=== PATIENT | female | born 1930 | race Caucasian/White ===

== ENCOUNTER 2017-06-20 18:57 | Emergency (ER) | payer OTHER ==
[~2017-06-20] VITALS: Ht 147.3 cm; Wt 51.0 kg
[~2017-06-20 18:57] MED LIST: CLC100 PO; ERGO500037 PO; FENT50DI19 TD; LSN20 PO; NRN400 PO; OXYC1TAB3 PO; SNK PO
[2017-06-20 19:05] VITALS: TEMP 36.6; Ht 147.3 cm; Wt 51.0 kg
[2017-06-20] MEDS ORDERED: DiphenhydrAMINE HCL 50 MG/ML VIAL IV STA (19:18)
[2017-06-20] MEDS ORDERED: SODIUM CHLORIDE 0.9% 1000ML 1,000 ML IV STA (19:18)
[2017-06-20] MEDS ORDERED: ACETAMINOPHEN 500 MG TAB PO STA (19:18)
[2017-06-20] MEDS ORDERED: METOCLOPRAMIDE HCL INJ 5 MG/ML 2 ML VIAL IV STA (19:18)
[2017-06-20] MEDS ORDERED: FENT75DI2 TOP (19:50)
[2017-06-20] MEDS ORDERED: LORA-741 PO (19:52)
[2017-06-20] MEDS ORDERED: PREG1CAP28 PO (19:52)
[2017-06-20 19:59] LABS: INR 1.1 (0.9-1.1); PARTIAL THROMBOPLASTIN RATIO 0.9; PROTHROMBIN TIME (PATIENT) 11.4 SECONDS (9.0-12.0)
[2017-06-20 20:01] LABS: BUN/CREATININE RATIO 17.7 (10-20); CALCIUM 9.3 mg/dl (8.5-10.1); CREATININE 0.84 mg/dl (0.60-1.20); POTASSIUM 3.7 mmol/L (3.5-5.1)
[2017-06-20 20:04] LABS: PHOSPHORUS 2.2 mg/dl (2.5-4.9)
--- NOTE | 2017-06-20 20:18 | DIAGNOSTIC IMAGING REPORT ---
CT OF THE HEAD WITHOUT CONTRAST CLINICAL HISTORY: Severe headache. COMPARISON STUDY: No previous studies for comparison. CT DOSE: 614.27 mGy.cm TECHNIQUE: Helical axial images of the head were obtained without IV contrast. Automated exposure control was utilized for the study. A dose lowering technique was utilized adhering to the principles of ALARA. FINDINGS: No acute intracranial hemorrhage, midline shift or mass effect is present. Brain volume is normal for age. Ventricular system is unremarkable. White matter hypodensity suggests small vessel disease. 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 There are no findings to suggest acute dural sinus thrombosis or acute territorial infarct. Mild white matter hypodensities likely reflect small vessel disease. Visualized portions of the sinuses and mastoid air cells are clear. There are no significant calvarial abnormalities. IMPRESSION: No acute intracranial findings. Electronically signed by: Shamar Putnam M.D. 06/20/2017 8:16 PM Dictated Date/Time: 06/20/2017 8:14 PM
[2017-06-20 20:19] VITALS: O2SAT 97
[2017-06-20] MEDS ORDERED: MAGNESIUM SULFATE 1GM / D5W 1 GM BAG IV STA (21:04)
[2017-06-20] MEDS ORDERED: DEXAMETHASONE SOD INJ 10 MG/ML VIAL IV ONE (21:15)
[2017-06-20 21:34] LABS: URINE APPEARANCE CLOUDY (CLEAR); URINE BILIRUBIN NEG (NEG); URINE COLOR YELLOW; URINE EPITHELIAL CELL AUTO >30 /lpf (0-5); URINE NITRITE NEG (NEG); URINE PH 7.5 (4.5-7.5); URINE SPECIFIC GRAVITY 1.017 (1.000-1.030); UROBILINOGEN NEG (NEG)
[2017-06-20 21:35] LABS: BASO % 0.3 %; BASO ABS # 0.02 K/uL (0-0.2); COMPLETE YES; EOS % 0.2 %; IG% 0.2 %; LYMPH % 23.4 %; MEAN CELL VOLUME 87.5 fL (80-100); MEAN CORPUSCULAR HEMOGLOBIN 29.8 pg (25-34); MEAN PLATELET VOLUME 10.4 fL (7.4-10.4); MONO % 7.7 %; NEUT % 68.2 %; PLATELET COUNT 196 K/uL (130-400)
[2017-06-20 21:45] LABS: MANUAL MICROSCOPIC REQUIRED? NO; REVIEW REQ? NO; SULFASALICYLIC ACID NEG (NEG)
--- NOTE | 2017-06-20 22:15 | EMERGENCY ROOM VISIT NOTE ---
History Report prepared by Carrie: Amarilis Saleh Under the Supervision of: Dr. Krystian Rivero M.D. First contact with patient: 19:08 Chief Complaint: HEADACHE Stated Complaint: SEVERE HEADACHE History of Present Illness The patient is an 87 year old white female with a past medical history of hypertension, multiple myeloma who presents to the ED with a cc of constant headache beginning last night. Positive cheek bone pain, nausea, dry heaving. Negative numbness, tingling, weakness, fever, chills, vomiting, light or sound sensitivity. No recent falls. No history of headaches. No blood thinners. Patient admits to smoking and alcohol use. Source of History: patient Onset: last night Position: head Quality: ache Timing: constant Associated Symptoms: + nausea, No fevers, No chills, No vomiting, No weakness, No numbness Note: Pt reports cheek bone pain, dry heaving. Pt denies tingling, light/sound sensitivity. Review of Systems See HPI for pertinent positives and negatives. A total of ten systems were reviewed and were otherwise negative. Past Medical & Surgical Medical Problems: (1) CKD (chronic kidney disease) stage 3, GFR 30-59 ml/min (2) Compression fracture (3) GERD (gastroesophageal reflux disease) (4) History of DVT (deep vein thrombosis) (5) HTN (hypertension) (6) Multiple myeloma (7) Vitamin D deficiency Surgical Problems: (1) History of appendectomy (2) History of cholecystectomy (3) History of total hysterectomy Social History Problems: (1) Tobacco use Family History Cancer Diabetes mellitus Gallbladder disease Hypertension Social History Smoking Status: Former Smoker Drug Use: none Marital Status: Housing Status: lives alone Occupation Status: retired Current/Historical Medications Scheduled Docusate Sodium (Docusate Sodium), 200 MG PO BID Ergocalciferol (Vitamin D 69479 Unit), 1 CAP PO WK Fentanyl (Fentanyl), 75 MCG TOP [id number] Lisinopril (Lisinopril), 20 MG PO DAILY Pregabalin (Lyrica), 75 MG PO TID Senna (Senna Lax), 2 TABS PO BID Scheduled PRN Lorazepam (Ativan), 0.5 MG PO Q6H PRN for Anxiety Oxycodone Ir (Roxicodone Ir), 5 MG PO Q4H PRN for Pain Allergies Coded Allergies: No Known Allergies (Unverified , 07/28/16) Physical Exam Vital Signs Date Time Temp Pulse Resp B/P (MAP) Pulse Ox O2 Delivery O2 Flow Rate FiO2 06/20/17 21:31 178/96 06/20/17 21:21 72 31 95 06/20/17 20:55 146/87 06/20/17 20:51 73 22 94 06/20/17 20:21 69 23 92 06/20/17 20:20 69 06/20/17 20:19 97 Room Air 06/20/17 20:16 158/83 06/20/17 19:05 36.6 83 20 165/79 93 Room Air Physical Exam GENERAL: Uncomfortable appearing, in pain HENT: Normocephalic, atraumatic. Wearing glasses, edentulous. EYES: Normal conjunctiva. Sclera non-icteric. NECK: Supple. No nuchal rigidity. FROM. No meningismus. Negative Kernig's and Brudzinski's. RESPIRATORY: CTAB, no rhonchi, wheezing, crackles CARDIAC: RRR, no MRG ABDOMEN: Soft, NTND, BS+ MSK: No chest wall TTP, no LE edema NEURO: GCS 15, CN 2-12 intact, visual acuity grossly normal to finger counting, good finger to nose, no sensory deficit, 5/5 strength in upper and lower extremities. SKIN: No rash or jaundice noted. Medical Decision & Procedures ER Provider Diagnostic Interpretation: Radiology results as stated below per my review and radiologist interpretation: CT OF THE HEAD WITHOUT CONTRAST CLINICAL HISTORY: Severe headache. COMPARISON STUDY: No previous studies for comparison. CT DOSE: 614.27 mGy.cm TECHNIQUE: Helical axial images of the head were obtained without IV contrast. Automated exposure control was utilized for the study. A dose lowering technique was utilized adhering to the principles of ALARA. FINDINGS: No acute intracranial hemorrhage, midline shift or mass effect is present. Brain volume is normal for age. Ventricular system is unremarkable. White matter hypodensity suggests small vessel disease. 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 There are no findings to suggest acute dural sinus thrombosis or acute territorial infarct. Mild white matter hypodensities likely reflect small vessel disease. Visualized portions of the sinuses and mastoid air cells are clear. There are no significant calvarial abnormalities. IMPRESSION: No acute intracranial findings. Electronically signed by: Shamar Putnam M.D. 06/20/2017 8:16 PM Dictated Date/Time: 06/20/2017 8:14 PM Laboratory Results 06/20/17 19:40 Red Blood Count 4.00, Mean Corpuscular Volume 87.5, Mean Corpuscular Hemoglobin 29.8, Mean Corpuscular Hemoglobin Concent 34.0, Mean Platelet Volume 10.4, Neutrophils (%) (Auto) 68.2, Lymphocytes (%) (Auto) 23.4, Monocytes (%) (Auto) 7.7, Eosinophils (%) (Auto) 0.2, Basophils (%) (Auto) 0.3, Neutrophils # (Auto) 4.37, Lymphocytes # (Auto) 1.50, Monocytes # (Auto) 0.49, Eosinophils # (Auto) 0.01, Basophils # (Auto) 0.02 06/20/17 19:46 Test 06/20/17 19:40 06/20/17 19:46 06/20/17 21:30 White Blood Count 6.40 K/uL (4.8-10.8) Red Blood Count 4.00 M/uL (4.2-5.4) Hemoglobin 11.9 g/dL (12.0-16.0) Hematocrit 35.0 % (37-47) Mean Corpuscular Volume 87.5 fL (80-100) Mean Corpuscular Hemoglobin 29.8 pg (25-34) Mean Corpuscular Hemoglobin Concent 34.0 g/dl (32-36) Platelet Count 196 K/uL (130-400) Mean Platelet Volume 10.4 fL (7.4-10.4) Neutrophils (%) (Auto) 68.2 % Lymphocytes (%) (Auto) 23.4 % Monocytes (%) (Auto) 7.7 % Eosinophils (%) (Auto) 0.2 % Basophils (%) (Auto) 0.3 % Neutrophils # (Auto) 4.37 K/uL (1.4-6.5) Lymphocytes # (Auto) 1.50 K/uL (1.2-3.4) Monocytes # (Auto) 0.49 K/uL (0.11-0.59) Eosinophils # (Auto) 0.01 K/uL (0-0.5) Basophils # (Auto) 0.02 K/uL (0-0.2) RDW Standard Deviation 44.5 fL (36.4-46.3) RDW Coefficient of Variation 13.9 % (11.5-14.5) Immature Granulocyte % (Auto) 0.2 % Immature Granulocyte # (Auto) 0.01 K/uL (0.00-0.02) Prothrombin Time 11.4 SECONDS (9.0-12.0) Prothromb Time International Ratio 1.1 (0.9-1.1) Activated Partial Thromboplast Time 24.0 SECONDS (21.0-31.0) Partial Thromboplastin Ratio 0.9 Anion Gap 6.0 mmol/L (3-11) Est Creatinine Clear Calc Drug Dose 34.7 ml/min Estimated GFR () 73.5 Estimated GFR (Non- 63.4 BUN/Creatinine Ratio 17.7 (10-20) Calcium Level 9.3 mg/dl (8.5-10.1) Phosphorus Level 2.2 mg/dl (2.5-4.9) Magnesium Level 2.0 mg/dl (1.8-2.4) Alkaline Phosphatase 39 U/L (45-117) Lactate Dehydrogenase 137 U/L (84-246) Total Creatine Kinase 60 U/L (26-192) Urine Color YELLOW Urine Appearance CLOUDY (CLEAR) Urine pH 7.5 (4.5-7.5) Urine Specific [place] 1.017 (1.000-1.030) Urine Protein NEG (NEG) Urine Glucose (UA) NEG (NEG) Urine Ketones TRACE (NEG) Urine Occult Blood NEG (NEG) Urine Nitrite NEG (NEG) Urine Bilirubin NEG (NEG) Urine Urobilinogen NEG (NEG) Urine Leukocyte Esterase NEG (NEG) Urine WBC (Auto) 1-5 /hpf (0-5) Urine RBC (Auto) 0-4 /hpf (0-4) Urine Hyaline Casts (Auto) 0 /lpf (0-5) Urine Epithelial Cells (Auto) >30 /lpf (0-5) Urine Bacteria (Auto) NEG (NEG) Laboratory results reviewed by me Medications Administered Medications (Trade) Dose Ordered Sig/Carlitos Route Start Time Stop Time Status Last Admin Dose Admin Metoclopramide HCl (Reglan Inj) 10 mg NOW STAT IV 06/20/17 19:18 06/20/17 19:22 DC 06/20/17 19:45 10 MG Acetaminophen (Tylenol Tab) 1,000 mg NOW STAT PO 06/20/17 19:18 06/20/17 19:22 DC 06/20/17 19:43 1,000 MG Diphenhydramine HCl (Benadryl Inj) 12.5 mg NOW STAT IV 06/20/17 19:18 06/20/17 19:22 DC 06/20/17 19:42 12.5 MG Sodium Chloride 1,000 ml @ 999 mls/hr Q1H1M STAT IV 06/20/17 19:18 06/20/17 20:18 DC 06/20/17 20:44 999 MLS/HR Dexamethasone Sodium Phosphate (Decadron Inj) 10 mg NOW ONCE IV 06/20/17 21:15 06/20/17 21:16 DC 06/20/17 21:16 10 MG Magnesium Sulfate (Magnesium Sulfate) 1 gm NOW STAT IV 06/20/17 21:04 06/20/17 21:06 DC 06/20/17 21:16 1 GM ECG Indication: nausea Rate (beats per minute): 63 Rhythm: normal sinus Findings: 1st degree AV block, other (prolonged NV, normal QRS and QTc intervals, isolated TWI in lead 3, no contiguous changes, no other STS changes or TWI) ED Course 1908: The patient was evaluated in room B12B. A complete history and physical exam was performed. 2100: I reevaluated the patient. She is not feeling significantly improved. I informed them of the lab and CT results. 2154: I reevaluated the patient. She still has mild pain, but is improved. She tolerated PO. I discussed results and discharge instructions: she verbalized understanding and agreement. The patient is ready for discharge. Medical Decision The patient is an 87 year old white female with a past medical history of hypertension, multiple myeloma who presents to the ED with a cc of constant headache beginning last night. Triage Nursing notes reviewed. The patient's presentation and history were concerning for migraine, dehydration , metabolic abnormality, cancer mass. Patient does have a history of chronic pain issues and takes oxycodone as well as has a prescription for fentanyl patch. Given patient's history of multiple myeloma additional lab work and a CT was obtained. Patient had a negative CT scan patient's lab work was fairly unremarkable. Patient's calcium LDH and alkaline phosphatase were within normal limits. Patient's UA was negative for acute infection. Patient's kidney function was normal. Patient does not have an elevated white count. Patient's CT did not show any acute mass or lytic lesions per the radiologist's read. Patient was given an additional round of medications. Patient's pain improved but did not fully resolve. Patient had no emesis. Patient was feeling improved and tolerated by mouth. Patient was told that she would benefit from increase hydration and food. Patient was given strict follow-up, discharge, return precautions. Patient agreed with plan of care patient was safely discharged home. Medication Reconcilliation Current Medication List: was personally reviewed by me Blood Pressure Screening Patient's blood pressure: Elevated blood pressure Blood pressure disposition: Referred to PCP Impression Primary Impression: Headache Scribe Attestation The scribe's documentation has been prepared under my direction and personally reviewed by me in its entirety. I confirm that the note above accurately reflects all work, treatment, procedures, and medical decision making performed by me. Departure Information Dispostion Home / Self-Care Referrals No Doctor, Assigned (PCP) Patient Instructions Headache Pain, My [facility] Additional Instructions Please return to the emergency department if you have worsening or recurrent symptoms not amenable to at-home treatment. Please call for a follow-up appointment with her primary care physician. Please take your medications as prescribed. If you have other concerns and/or complaints please feel free to also call your primary care physician's office or return the ED for further evaluation, management, and treatment. Problem Qualifiers Primary Impression: Headache Headache type: unspecified Headache chronicity pattern: acute headache Intractability: not intractable Qualified Codes: R51 - Headache
[2017-06-20 22:37] VITALS: BP 165/92; PULSE 77; O2SAT 96
== END 2017-06-20 22:37 | disposition home or self-care (01) ==
LOC: C.EDB 19:00
DX: R51 Headache (principal); I12.9 Hypertensive chronic kidney disease with stage 1 through stage 4 chronic kidney disease, or unspecified chronic kidney disease; N18.3 Chronic kidney disease, stage 3 (moderate); C90.00 Multiple myeloma not having achieved remission; K21.9 Gastro-esophageal reflux disease without esophagitis; E55.9 Vitamin D deficiency, unspecified; I44.0 Atrioventricular block, first degree; F17.200 Nicotine dependence, unspecified, uncomplicated; Z83.3 Family history of diabetes mellitus; Z82.49 Family history of ischemic heart disease and other diseases of the circulatory system

== ENCOUNTER 2020-09-16 08:48 | Inpatient (IN) ==
[2020-09-16] MEDS ORDERED: ONDANSETRON INJ 2 MG/ML 2 ML VIAL IV STA (09:27)
[2020-09-16] MEDS ORDERED: SODIUM CHLORIDE 0.9% 500 ML IV SCH (09:30)
--- NOTE | 2020-09-16 09:37 | Emergency Department Note ---
Impression & Plan Weakness, Multiple myeloma, Anemia, Nausea, Demand ischemia of myocardium ED Provider Note Provider: Adrien Coelho MD DATE OF SERVICE:09/16/2020 CHIEF COMPLAINT: Weakness, headache, myalgias HISTORY OF PRESENT ILLNESS: Patient is a 89-year-old female with a past medical history of CKD, multiple myeloma, DVT currently on Xarelto, hypertension presenting today with her [id number] due to 2 to 3 days of worsening weakness, some decreased appetite and nausea as well as headache. Took a baby aspirin this morning she states and is on Xarelto. Denies any trauma. Denies syncope. Patient states feels weak and upset her stomach. Patient denies acute visual changes or real abdominal pain. Denies chest pain or shortness of breath. Endorses some diffuse body myalgias. Patient is under treatment for multiple myeloma and is due to start a new treatment for this but has not taken it yet that she believes. No fevers are reported. Patient denies sick contacts but has been to the doctors over the last several weeks she states. Patient denies any significant diarrhea or bloody or black stools. REVIEW OF SYSTEMS: A total of 10 review of systems was obtained and negative except as stated above in the HPI. PAST MEDICAL HISTORY: As noted above MEDICATIONS: Reviewed home medication list include Xarelto and revlimid SOCIAL HISTORY: Lives at home by herself, 1 pack/day smoker PHYSICAL EXAM: GENERAL: alert and oriented in no acute distress on stretcher but appears fatigued Head: normocephalic and atraumatic EYES: No injection, discharge or icterus. PERRL NECK: Trachea midline. Supple. ENT: Mucous membranes pink and moist. TMs are clear bilaterally without erythema or bulging LUNGS: Airway patent. No retractions. Breath sounds clear with good air entry bilaterally. HEART: Regular rate and rhythm. No chest wall tenderness ABDOMEN: Soft and non-tender, without guarding or rebound. 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 SKIN: Acyanotic, warm, dry, without rashes EXTREMITIES: Without swelling, tenderness or deformity NEUROLOGICAL: No focal deficits. No aphasia. No facial droop or slurred speech. EK bpm sinus rhythm first-degree AV block. No PVC. No acute ST segment elevation is noted with some lateral inferior T wave inversions and slight ST depression particularly laterally. Repeat EK. 67 bpm sinus rhythm with first-degree AV block and sinus arrhythmia. No acute ST segment elevation is noted with some lateral ST flattening and inferior T wave inversions appear similar to previous. CONTINUOUS CARDIAC MONITORING: was ordered and showed a heart rate of 90 bpm in first-degree AV block GCS 15. Patient's laboratory studies and imaging reviewed. Differential includes Infection, dehydration, metabolic abnormality, hypo/hy perglycemia, electrolyte disturbance, anemia, hypoxia, cardiac sources, intracerebral event, toxicologic, neurologic, as well as other pathologies. IMPRESSION/MEDICAL DECISION MAKING: Patient presents complaint of weakness headache and nausea with some myalgias reported. Afebrile here. No trauma reported or syncope. Is reportedly anticoagulated with Xarelto lowering suspicion for DVT or PE. Patient not significantly tachycardic or hypoxic denies shortness of breath here. Question of this could represent coronavirus and testing was sent as well as influenza testing. CT the head to complete given anticoagulation report of headache although she does not appear meningitic and has no large focal deficits I doubt this is acute CVA. Given her abdominal discomfort we will complete a CT of her abdomen pelvis to exclude intra-abdominal process. Broad blood work was sent including cultures and lactate. Given some fluid hydration and nausea here to help with her symptoms. Chest x-ray is unremarkable per radiology without evidence of pneumothorax or effusion/pneumonia. CT of the head without acute intracranial hemorrhage. CT the abdomen pelvis per radiology question some possible colonic thickening in the ascending and transverse colon but no evidence of acute diverticulitis or obstruction. Question of possible mucosal lesion. Prior cholecystectomy is noted with trace ascites in the abdomen pelvis. Patient is not having significant diarrhea and lower suspicion that this is a colitis although she is a bit nauseous. Can continued to be monitored as an inpatient. Laboratory studies show significant anemia at 5.4 and mild leukopenia 3.4 but appears new compared to 2018. No significant electrolyte abnormality. Troponin is elevated 0.359 and EKG without acute ischemic findings. Procalcitonin is undetectable. Lactate is not elevated. Slight AST ALT elevation in the mid 80s and doubt acute hepatitis given this.. Covid negative and flu negative. TSH within normal limits. Lipase 82 and I doubt pancreatitis given this. Inconsistent with obstructive biliary pathology or choledocholithiasis. Patient symptoms are likely related to her significant anemia likely causing some demand ischemia. Patient is already anticoagulated on Xarelto and on aspirin at this point. Not having active chest pain. Given the anemia patient was consented for blood transfusions and 2 units of packed red blood cells were ordered. Under for anemia is related to her multiple myeloma given the leukopenia noted. Reticulocyte, ferritin, & TIBC was ordered. Hemoccult negati ve here and does report significant GI bleeding. Patient later reported little bit right shoulder pain repeat EKG was obtained without significant changes. Blood transfusion is just being started. Patient does have some mild chills. DIAGNOSIS: Acute anemia, weakness, demand ischemia, nausea DISPOSITION: Hospitalist will evaluate Patient was agreeable with this plan. Per her request her [id number] was updated via phone. Patient's daughter later updated at bedside. Critical Care I have personally spent 39 minutes of critical care time in the direct manageme nt of this patient. This includes bedside care, interpretation of diagnostic studies, and testing, discussion with consultants, patient, and family members, and other required patient management activities. These 39 minutes is in excess of all separately billable procedures. Past Med/Surg History Social History Smoking Status: Former smoker Tobacco Type: Cigarettes Preferred Language: French Feels Safe at Home: Yes Allergies Allergies Allergy/AdvReac Type Severity Reaction Status Date / Time No Known Allergies Allergy Unverified 09/16/20 09:21 Home Meds Home Medications Medication Instructions Recorded Confirmed acetaminophen 500 mg PO Q4H PRN 09/16/20 09/16/20 aspirin [Aspirin Low-Strength] 81 mg PO DAILY 09/16/20 09/16/20 cholecalciferol (vitamin D3) 50 mcg PO DAILY 09/16/20 09/16/20 [Vitamin D3] docusate sodium 100 mg PO DAILY 09/16/20 09/16/20 donepezil 10 mg PO DAILY 09/16/20 09/16/20 lenalidomide [Revlimid] 10 mg PO DAILY 09/16/20 09/16/20 lisinopril 5 mg PO DAILY 09/16/20 09/16/20 mirtazapine 15 mg PO HS 09/16/20 09/16/20 nystatin 5 ml PO QID 09/16/20 09/16/20 oxycodone 5 mg PO Q6H PRN 09/16/20 09/16/20 rivaroxaban [Xarelto] 15 mg PO DAILY 09/16/20 09/16/20 simethicone [Mytab Gas 80 mg PO QID PRN 09/16/20 09/16/20 (simethicone)] vit C,K-Ln-kbbzy-lutein-zeaxan 1 tab PO DAILY 09/16/20 09/16/20 [PreserVision AREDS-2] Results & Data (ED) Vital Signs Vital Signs - 24 hr 09/16/20 08:49 09/16/20 08:53 09/16/20 09:55 Temperature 36.7 C Temperature Source Oral Pulse Rate 86 Pulse Rate [Right Finger] Pulse Rate from SpO2 Sensor Pulse Rhythm Pulse Strength Respiratory Rate 16 Respiratory Effort / Characteristics Non-Labored Spontaneous Respiratory Depth Normal Respiratory Pattern Regular Blood Pressure 119/65 Blood Pressure [Left Arm] Blood Pressure Mean 83 Blood Pressure Mean [Left Arm] Blood Pressure Position Sitting Blood Pressure Position [Left Arm] Pulse Oximetry 94 97 95 Oxygen Delivery Method Room Air Room Air Room Air Oxygen Flow Rate Sepsis Recent Fever Within 48 Hours No Sepsis New/Unexplained Change in Mental Status N/A Sepsis Action Taken by Nursing No Action Required 09/16/20 10:25 09/16/20 12:12 09/16/20 12:14 Temperature Temperature Source Pulse Rate 81 81 Pulse Rate [Right Finger] 70 Pulse Rate from SpO2 Sensor 80 Pulse Rhythm Pulse Strength Respiratory Rate 18 21 20 Respiratory Effort / Characteristics Non-Labored Spontaneous Respiratory Depth Normal Respiratory Pattern Blood Pressure 117/63 Blood Pressure [Left Arm] 112/63 Blood Pressure Mean 80 Blood Pressure Mean [Left Arm] 79 Blood Pressure Position Blood Pressure Position [Left Arm] Lying Pulse Oximetry 88 L 94 Oxygen Delivery Method Room Air Oxygen Flow Rate Sepsis Recent Fever Within 48 Hours Sepsis New/Unexplained Change in Mental Status Sepsis Action Taken by Nursing 09/16/20 12:16 09/16/20 12:23 09/16/20 12:30 Temperature 36.6 C 36.6 C Temperature Source Oral Oral Pulse Rate 72 75 Pulse Rate [Right Finger] 75 Pulse Rate from SpO2 Sensor 78 71 Pulse Rhythm Pulse Strength Respiratory Rate 20 18 20 Respiratory Effort / Characteristics Non-Labored Spontaneous Respiratory Depth Normal Respiratory Pattern Regular Blood Pressure 117/63 114/59 L Blood Pressure [Left Arm] 117/63 Blood Pressure Mean 81 70 Blood Pressure Mean [Left Arm] 81 Blood Pressure Position Lying Blood Pressure Position [Left Arm] Lying Pulse Oximetry 97 98 99 Oxygen Delivery Method Room Air Oxygen Flow Rate 2 Sepsis Recent Fever Within 48 Hours Sepsis New/Unexplained Change in Mental Status Sepsis Action Taken by Nursing 09/16/20 12:34 09/16/20 12:35 09/16/20 12:48 Temperature 36.4 C L 36.4 C L Temperature Source Oral Oral Pulse Rate 70 72 Pulse Rate [Right Finger] Pulse Rate from SpO2 Sensor 64 Pulse Rhythm Regular Pulse Strength Normal Respiratory Rate 22 18 Respiratory Effort / Characteristics Respiratory Depth Respiratory Pattern Blood Pressure 98/53 L 107/71 Blood Pressure [Left Arm] Blood Pressure Mean 70 83 Blood Pressure Mean [Left Arm] Blood Pressure Position Lying Lying Blood Pressure Position [Left Arm] Pulse Oximetry 100 99 Oxygen Delivery Method Oxygen Flow Rate 2 Sepsis Recent Fever Within 48 Hours Sepsis New/Unexplained Change in Mental Status Sepsis Action Taken by Nursing 09/16/20 13:03 09/16/20 13:20 Temperature 36.4 C L Temperature Source Oral Pulse Rate 70 72 Pulse Rate [Right Finger] Pulse Rate from SpO2 Sensor Pulse Rhythm Regular Pulse Strength Normal Respiratory Rate 18 16 Respiratory Effort / Characteristics Respiratory Depth Respiratory Pattern Blood Pressure 116/58 L 117/55 L Blood Pressure [Left Arm] Blood Pressure Mean 77 75 Blood Pressure Mean [Left Arm] Blood Pressure Position Lying Lying Blood Pressure Position [Left Arm] Pulse Oximetry 98 95 Oxygen Delivery Method Oxygen Flow Rate 2 2 Sepsis Recent Fever Within 48 Hours Sepsis New/Unexplained Change in Mental Status Sepsis Action Taken by Nursing Laboratory Data Result diagrams: 09/16/20 09:56 09/16/20 09:56 Lab Results 09/16/20 09/16/20 09/16/20 Range/Units 08:56 09:56 09:56 WBC 3.42 L (4.8-10.8) K/uL RBC 1.82 L (4.2-5.4) M/uL Hgb 5.4 L* (12.0-16.0) g/dL Hct 16.6 L* (37-47) % MCV 91.2 (80-100) fL MCH 29.7 (25-34) pg MCHC 32.5 (32-36) g/dL RDW Std Deviation 58.5 H (36.4-46.3) fL RDW Coeff of Teodoro 17.9 H (11.5-14.5) % Plt Count 149 (130-400) K/uL MPV 11.6 H (7.4-10.4) fL Immature Gran % (Auto) 1.5 % Neut % (Auto) 69.9 % Lymph % (Auto) 22.8 % [place] % (Auto) 5.8 % Eos % (Auto) 0.0 % Baso % (Auto) 0.0 % Reticulocyte % (Auto) 2.1 H (0.5-2.0) % Neut # (Auto) 2.39 (1.4-6.5) K/uL Lymph # (Auto) 0.78 L (1.2-3.4) K/uL [place] # (Auto) 0.20 (0.11-0.59) K/uL Eos # (Auto) 0.00 (0-0.5) K/uL Baso # (Auto) 0.00 (0-0.2) K/uL Reticulocyte # 0.04 (0.02-0.10) 10^6/uL Immature Gran # (Auto) 0.05 H (0.00-0.02) K/uL RBC Morphology Unremarkable PT Cancelled INR Cancelled APTT Cancelled PTT Ratio Cancelled Sodium (136-145) mmol/L Potassium (3.5-5.1) mmol/L Chloride (98-107) mmol/L Carbon Dioxide (21-32) mmol/L Anion Gap (3-11) BUN (7-18) mg/dl Creatinine (0.6-1.2) mg/dl Est Cr Clr Drug Dosing ml/min Est GFR ( Amer) Est GFR (Non-Af Amer) BUN/Creatinine Ratio (10-20) Glucose (70-99) mg/dl Lactate (0.4-2.0) mmol/L Calcium (8.5-10.1) mg/dl Magnesium (1.8-2.4) mg/dl TIBC (250-450) mcg/dl Ferritin (8-388) ng/ml Total Bilirubin (0.2-1) mg/dl AST (15-37) U/L ALT (12-78) U/L Alkaline Phosphatase (45-117) U/L Troponin I (0-0.045) ng/ml Total Protein (6.4-8.2) gm/dl Albumin (3.4-5.0) gm/dl Globulin (2.5-4.0) gm/dl Albumin/Globulin Ratio (0.9-2) Lipase (73-393) U/L Procalcitonin (0-0.5) ng/ml TSH (0.300-4.500) uIu/ml COVID-19 Eval Order COVID-19 PCR (Negative) Influ A Molecular Assay (Negative) Influ B Molecular Assay (Negative) Blood Type Antibody Screen Crossmatch 09/16/20 09/16/20 09/16/20 Range/Units 09:56 09:56 09:56 WBC (4.8-10.8) K/uL RBC (4.2-5.4) M/uL Hgb (12.0-16.0) g/dL Hct (37-47) % MCV (80-100) fL MCH (25-34) pg MCHC (32-36) g/dL RDW Std Deviation (36.4-46.3) fL RDW Coeff of Teodoro (11.5-14.5) % Plt Count (130-400) K/uL MPV (7.4-10.4) fL Immature Gran % (Auto) % Neut % (Auto) % Lymph % (Auto) % [place] % (Auto) % Eos % (Auto) % Baso % (Auto) % Reticulocyte % (Auto) (0.5-2.0) % Neut # (Auto) (1.4-6.5) K/uL Lymph # (Auto) (1.2-3.4) K/uL [place] # (Auto) (0.11-0.59) K/uL Eos # (Auto) (0-0.5) K/uL Baso # (Auto) (0-0.2) K/uL Reticulocyte # (0.02-0.10) 10^6/uL Immature Gran # (Auto) (0.00-0.02) K/uL RBC Morphology PT INR APTT PTT Ratio Sodium 139 (136-145) mmol/L Potassium 3.9 (3.5-5.1) mmol/L Chloride 110 H (98-107) mmol/L Carbon Dioxide 22 (21-32) mmol/L Anion Gap 7.0 (3-11) BUN 22 H (7-18) mg/dl Creatinine 1.11 (0.6-1.2) mg/dl Est Cr Clr Drug Dosing 27.2 ml/min Est GFR ( Amer) 51.3 Est GFR (Non-Af Amer) 44.3 BUN/Creatinine Ratio 19.4 (10-20) Glucose 109 H (70-99) mg/dl Lactate (0.4-2.0) mmol/L Calcium 8.6 (8.5-10.1) mg/dl Magnesium 2.0 (1.8-2.4) mg/dl TIBC (250-450) mcg/dl Ferritin (8-388) ng/ml Total Bilirubin 0.2 (0.2-1) mg/dl AST 89 H (15-37) U/L ALT 85 H (12-78) U/L Alkaline Phosphatase 55 (45-117) U/L Troponin I 0.359 H* (0-0.045) ng/ml Total Protein 9.7 H (6.4-8.2) gm/dl Albumin 2.2 L (3.4-5.0) gm/dl Globulin 7.5 H (2.5-4.0) gm/dl Albumin/Globulin Ratio 0.3 L (0.9-2) Lipase 82 (73-393) U/L Procalcitonin < 0.05 (0-0.5) ng/ml TSH 0.747 (0.300-4.500) uIu/ml COVID-19 Eval Order COVID-19 PCR (Negative) Influ A Molecular Assay Negative (Negative) Influ B Molecular Assay Negative (Negative) Blood Type Antibody Screen Crossmatch 09/16/20 09/16/20 09/16/20 Range/Units 09:56 09:56 10:32 WBC (4.8-10.8) K/uL RBC (4.2-5.4) M/uL Hgb (12.0-16.0) g/dL Hct (37-47) % MCV (80-100) fL MCH (25-34) pg MCHC (32-36) g/dL RDW Std Deviation (36.4-46.3) fL RDW Coeff of Teodoro (11.5-14.5) % Plt Count (130-400) K/uL MPV (7.4-10.4) fL Immature Gran % (Auto) % Neut % (Auto) % Lymph % (Auto) % [place] % (Auto) % Eos % (Auto) % Baso % (Auto) % Reticulocyte % (Auto) (0.5-2.0) % Neut # (Auto) (1.4-6.5) K/uL Lymph # (Auto) (1.2-3.4) K/uL [place] # (Auto) (0.11-0.59) K/uL Eos # (Auto) (0-0.5) K/uL Baso # (Auto) (0-0.2) K/uL Reticulocyte # (0.02-0.10) 10^6/uL Immature Gran # (Auto) (0.00-0.02) K/uL RBC Morphology PT INR APTT PTT Ratio Sodium (136-145) mmol/L Potassium (3.5-5.1) mmol/L Chloride (98-107) mmol/L Carbon Dioxide (21-32) mmol/L Anion Gap (3-11) BUN (7-18) mg/dl Creatinine (0.6-1.2) mg/dl Est Cr Clr Drug Dosing ml/min Est GFR ( Amer) Est GFR (Non-Af Amer) BUN/Creatinine Ratio (10-20) Glucose (70-99) mg/dl Lactate 1.0 (0.4-2.0) mmol/L Calcium (8.5-10.1) mg/dl Magnesium (1.8-2.4) mg/dl TIBC (250-450) mcg/dl Ferritin (8-388) ng/ml Total Bilirubin (0.2-1) mg/dl AST (15-37) U/L ALT (12-78) U/L Alkaline Phosphatase (45-117) U/L Troponin I (0-0.045) ng/ml Total Protein (6.4-8.2) gm/dl Albumin (3.4-5.0) gm/dl Globulin (2.5-4.0) gm/dl Albumin/Globulin Ratio (0.9-2) Lipase (73-393) U/L Procalcitonin (0-0.5) ng/ml TSH (0.300-4.500) uIu/ml COVID-19 Eval Order Covid19 Done at [facility] COVID-19 PCR NEGATIVE (Negative) Influ A Molecular Assay (Negative) Influ B Molecular Assay (Negative) Blood Type Antibody Screen Crossmatch 09/16/20 09/16/20 09/16/20 Range/Units 10:32 11:38 11:38 WBC (4.8-10.8) K/uL RBC (4.2-5.4) M/uL Hgb (12.0-16.0) g/dL Hct (37-47) % MCV (80-100) fL MCH (25-34) pg MCHC (32-36) g/dL RDW Std Deviation (36.4-46.3) fL RDW Coeff of Teodoro (11.5-14.5) % Plt Count (130-400) K/uL MPV (7.4-10.4) fL Immature Gran % (Auto) % Neut % (Auto) % Lymph % (Auto) % [place] % (Auto) % Eos % (Auto) % Baso % (Auto) % Reticulocyte % (Auto) (0.5-2.0) % Neut # (Auto) (1.4-6.5) K/uL Lymph # (Auto) (1.2-3.4) K/uL [place] # (Auto) (0.11-0.59) K/uL Eos # (Auto) (0-0.5) K/uL Baso # (Auto) (0-0.2) K/uL Reticulocyte # (0.02-0.10) 10^6/uL Immature Gran # (Auto) (0.00-0.02) K/uL RBC Morphology PT 12.9 H INR 1.2 H APTT PTT Ratio Sodium (136-145) mmol/L Potassium (3.5-5.1) mmol/L Chloride (98-107) mmol/L Carbon Dioxide (21-32) mmol/L Anion Gap (3-11) BUN (7-18) mg/dl Creatinine (0.6-1.2) mg/dl Est Cr Clr Drug Dosing ml/min Est GFR ( Amer) Est GFR (Non-Af Amer) BUN/Creatinine Ratio (10-20) Glucose (70-99) mg/dl Lactate (0.4-2.0) mmol/L Calcium (8.5-10.1) mg/dl Magnesium (1.8-2.4) mg/dl TIBC 208 L (250-450) mcg/dl Ferritin 135.6 (8-388) ng/ml Total Bilirubin (0.2-1) mg/dl AST (15-37) U/L ALT (12-78) U/L Alkaline Phosphatase (45-117) U/L Troponin I (0-0.045) ng/ml Total Protein (6.4-8.2) gm/dl Albumin (3.4-5.0) gm/dl Globulin (2.5-4.0) gm/dl Albumin/Globulin Ratio (0.9-2) Lipase (73-393) U/L Procalcitonin (0-0.5) ng/ml TSH (0.300-4.500) uIu/ml COVID-19 Eval Order COVID-19 PCR (Negative) Influ A Molecular Assay (Negative) Influ B Molecular Assay (Negative) Blood Type A Negative Antibody Screen NEGATIVE Crossmatch See Detail Administered Medications Discontinued Medications Sodium Chloride (Nss) 500 mls @ 999 mls/hr IV .[id number] MARIAELENA Stop: 09/16/20 10:00 Last Infusion: 09/16/20 10:54 Dose: 0 mls/hr Documented by: [id number] Admin: 09/16/20 10:12 Dose: 999 mls/hr Documented by: [id number] Ioversol (Ioversol 100ml) 94 ml IV ONCE ONE Stop: 09/16/20 11:24 Last Admin: 09/16/20 11:23 Dose: 94 ml Documented by: [id number] Ondansetron HCl (Ondansetron Inj 2 Mg/Ml 2 Ml Vial) 4 mg IV NOW STA Stop: 09/16/20 09:28 Last Admin: 09/16/20 10:12 Dose: 4 mg Documented by: [id number] Discharge Plan Visit Data Chief Complaint: Weakness Stated Complaint: NO APPETITE, SHAKING ED Provider: Adrien Coelho Discharge Problem: Weakness, Multiple myeloma, Anemia, Nausea, Demand ischemia of myocardium Patient Disposition: Admitted As Inpatient Forms Stand Alone Forms: [facility] Prescriptions Prescriptions: No Action nystatin 100,000 unit/mL Suspension 5 ml PO QID RF: 0 donepezil 10 mg tablet 10 mg PO DAILY RF: 0 aspirin [Aspirin Low-Strength] 81 mg Tablet,Delayed Release (Dr/Ec) 81 mg PO DAILY RF: 0 docusate sodium 100 mg Capsule 100 mg PO DAILY RF: 0 lisinopril 5 mg tablet 5 mg PO DAILY RF: 0 mirtazapine 15 mg tablet 15 mg PO HS RF: 0 acetaminophen 500 mg Capsule 500 mg PO Q4H PRN (Reason: Fever) RF: 0 simethicone [Mytab Gas (simethicone)] 80 mg Tablet,Chewable 80 mg PO QID PRN (Reason: Gastric Reflux) RF: 0 oxycodone 5 mg tablet 5 mg PO Q6H PRN (Reason: Pain) RF: 0 Revlimid 10 mg capsule 10 mg PO DAILY RF: 0 cholecalciferol (vitamin D3) [Vitamin D3] 50 mcg (2,000 unit) Tablet 50 mcg PO DAILY RF: 0 Xarelto 15 mg tablet 15 mg PO DAILY RF: 0 PreserVision AREDS-2 [id number] Capsule 1 tab PO DAILY RF: 0 Referrals Referrals: PCP,NO [Physician] - Discharge Problem: Multiple myeloma Qualifiers: Multiple myeloma remission status: unspecified Qualified Code(s): C90.00 - Multiple myeloma not having achieved remission Anemia Qualifiers: Anemia type: unspecified type Qualified Code(s): D64.9 - Anemia, unspecified
[2020-09-16 10:33] LABS: Hematocrit (blood only) 16.6 % (37-47); Hemoglobin 5.4 g/dL (12.0-16.0); Mean Corpuscular Hemoglobin 29.7 pg (25-34); Mean Corpuscular Hgb Conc 32.5 g/dL (32-36); Mean Corpuscular Volume 91.2 fL (80-100); Mean Platelet Volume 11.6 fL (7.4-10.4); Platelet Count 149 K/uL (130-400); RDW Coefficient of Variation 17.9 % (11.5-14.5); RDW Standard Deviation 58.5 fL (36.4-46.3); Red Blood Count 1.82 M/uL (4.2-5.4); White Blood Count 3.42 K/uL (4.8-10.8)
[2020-09-16] MEDS ORDERED: SODIUM CHLORIDE 0.9% 250 ML IV PRN ×2 (10:34→16:30)
[2020-09-16 10:37] LABS: Influenza A virus by PCR Negative (Negative); Influenza B virus by PCR Negative (Negative)
[2020-09-16 10:42] LABS: Albumin Level 2.2 gm/dl (3.4-5.0); BUN Creatinine Ratio 19.4 (10-20); Calcium 8.6 mg/dl (8.5-10.1); Creatinine Clr Calc Pharmacy 27.2 ml/min; Est GFR (African American) 51.3; Est GFR (Non-African American) 44.3; Potassium 3.9 mmol/L (3.5-5.1)
[2020-09-16 10:49] LABS: Immature Granulocytes # (auto) 0.05 K/uL (0.00-0.02); Immature Granulocytes % (auto) 1.5 %; Lymphocytes # (auto) 0.78 K/uL (1.2-3.4); Lymphocytes % (auto) 22.8 %; Monocytes % (auto) 5.8 %; Neutrophils # (auto) 2.39 K/uL (1.4-6.5); Neutrophils % (auto) 69.9 %; RBC Morphology Unremarkable
[2020-09-16 10:55] LABS: Albumin Globulin Ratio 0.3 (0.9-2); Bilirubin,Total 0.2 mg/dl (0.2-1); Globulin 7.5 gm/dl (2.5-4.0); Thyroid Stimulating Hormone 0.747 uIu/ml (0.300-4.500); Total Protein 9.7 gm/dl (6.4-8.2); Troponin I 0.359 ng/ml (0-0.045)
--- NOTE | 2020-09-16 11:09 | XRay Report ---
XR chest 1V portable CLINICAL HISTORY: weakness COMPARISON STUDY: Chest radiograph April 26, 2016. FINDINGS: Lung volumes are normal. There is no pneumothorax or pleural effusion. There is no consolid ation or evidence for pulmonary edema. Moderate cardiomegaly is noted. IMPRESSION: No acute cardiopulmonary findings. Moderate cardiomegaly. ACT 112: Negative or not required by law. Electronically signed by: Shamar Putnam M.D. 09/16/2020 11:08 AM
[2020-09-16] MEDS ORDERED: IOVERSOL 100ml IV ONE (11:23)
[2020-09-16 11:37] LABS: Reticulocyte % 2.1 % (0.5-2.0); Reticulocytes # 0.04 10^6/uL (0.02-0.10)
--- NOTE | 2020-09-16 11:44 | CT Scan Report ---
CT OF THE HEAD WITHOUT CONTRAST CLINICAL HISTORY: Headache. Weakness. COMPARISON STUDY: Head CT June 20, 2017. TECHNIQUE: Helical axial images of the head were obtained without IV contrast. Automated exposure con trol was utilized for the study. A dose lowering technique was utilized adhering to the principles o f ALARA. FINDINGS: No acute intracranial hemorrhage, midline shift or mass effect is present. White matter hyp odensity suggests small vessel disease. 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 Exam is mildly compromised by motion artifact. The ventricular system is unremarkable. The ba kaleb cisterns are patent. No extra-axial collections are present. There are no findings to suggest acu te dural sinus thrombosis or acute territorial infarct. No significant calvarial abnormalities are pr esent. Visualized portions of the sinuses and mastoid air cells are clear. IMPRESSION: No acute intracranial findings. ACT 112: Negative or not required by law. Electronically signed by: Shamar Putnam M.D. 09/16/2020 11:42 AM
--- NOTE | 2020-09-16 11:59 | CT Scan Report ---
CT OF THE ABDOMEN AND PELVIS WITH CONTRAST CLINICAL HISTORY: Nausea and myalgias. History of multiple myeloma. COMPARISON STUDY: CT of the abdomen and pelvis May 08, 2016. CT of the left hip July 28, 2016. TECHNIQUE: Following IV administration of 94 mL of Optiray-320, axial images of the abdomen and pelvi s were obtained from the lung bases to the proximal femurs. Images were reviewed in the axial, sagitt al, and coronal planes. IV contrast was administered without complication. Automated exposure contro l was utilized for the study. A dose lowering technique was utilized adhering to the principles of A MARY KATE. CT DOSE: 1045.23 mGy.cm FINDINGS: A 1 cm right lower lobe pulmonary nodule on axial image 33 of [address] of May 08, 2016. This is benign given stability. There is moderate cardiomegaly. No pneumatosis, free a ir or portal venous gas is present. There is trace perihepatic ascites. There is trace fluid within t he karen hepatis. Mild biliary ductal dilatation is unchanged since prior exam. This is likely relate d to cholecystectomy. A 4 mm calcification within the pancreatic head on image 176 is probably adjace nt to rather than within the main pancreatic duct although this is difficult to determine with certai nty. There is no peripancreatic infiltration. Diverticulum of the second portion the duodenum is note d. There are calcified granulomas within the spleen. Several bilateral renal cysts are noted. There a re multiple bilateral renal lesions which are too small to characterize. Right renal calculi measure up to 3 mm. There are no ureteral calculi. No hydronephrosis. A small amount of fluid within the pelv is is noted. Colonic diverticulosis is noted. There is no evidence for acute diverticulitis. There is mild wall thickening of the ascending colon and the proximal transverse colon. No lymphadenopathy is present. There is no evidence for a bowel obstruction. Extensive plaque of the abdominal aorta is no leena. Multiple old lower thoracic and lumbar spine compression fractures are present. These are shown on prior exam. IMPRESSION: 1. Apparent wall thickening of the ascending colon and proximal transverse colon. This is likely due to underdistention although a colitis could appear similar. A mucosal lesion is also within the diffe rential but considered less likely. Colonic diverticulosis without evidence for acute diverticulitis. No bowel obstruction. 2. Trace perihepatic ascites. Mild fluid within the karen hepatis. Biliary ductal dilatation which is similar to prior exam and likely related to cholecystectomy. 3. Small amount of ascites within the pelvis. 4. Moderate cardiomegaly and extensive coronary artery calcification. 5. Right nephrolithiasis. ACT 112: Negative or not required by law. Electronically signed by: Shamar Putnam M.D. 09/16/2020 11:58 AM
[2020-09-16 12:11] LABS: INR 1.2 (0.9-1.1); Prothrombin Time 12.9 Seconds (9.0-12.0)
[2020-09-16 12:18] LABS: Ferritin 135.6 ng/ml (8-388)
--- NOTE | 2020-09-16 12:48 | Electrocardiogram Report ---
Test Reason : Blood Pressure : / mmHG Vent. Rate : 081 BPM Atrial Rate : 081 BPM P-R Int : 242 ms QRS Dur : 098 ms QT Int : 400 ms P-R-T Axes : 041 049 -25 degrees QTc Int : 464 ms Sinus rhythm with 1st degree A-V block Abnormal ECG When compared with ECG of 20-JUN-2017 20:15, ST now depressed in the anterolateral leads T wave inversion more evident in Inferior leads Confirmed by Yinka Antoine ([id number]) on 09/16/2020 12:48:24 PM Referred By: REFERRED SELF Confirmed By:Yinka Antoine
--- NOTE | 2020-09-16 14:02 | History & Physical Report ---
Date of Service September 16, 2020 Assessment & Plan (1) Anemia: Present on admission with generalized Weakness Mostly related to anemia of acute blood loss possible due to Xarelto and aspirin Hgb on admission 5.4 (hgb on 08/28 was 10.1) Type and crossed and she is getting 2 units PRBC now Case discussed with oncology Dr. Howell that recommend to decrease the Xarelto to 10mg, but if hgb continue to drop and stool remain dark to d/c the Xarelto Dr. Howell said that pt is at risk of clot and the Revlimid increased the risk of clot Dr. Howell said that if Hgb stable and dark stool resolves to increase the Xarelto back to 15mg Will hold aspirin Will consult gastro Continue monitor H/H and transfuse if hgb less than 7 Will make NPO after midnight Generalized Weakness Mostly due to anemia with hgb 5.4 CT head showed no acute intracranial findings No focal neuro deficit Will consult PT/OT exam Fall precaution Elevated troponin Possible related to demand ischemia due to low hemoglobin Troponin on admission 0.359 EKG showed no acute ischemic changes Denies any chest pain Will hold aspirin Will trend troponin Transaminitis AST 89 and ALT 85 on admission denies any chest pain CT abd/pelvis showed apparent wall thickening of the ascending colon and proximal transverse colon. This is likely due to underdistention although a colitis could appear similar. Will monitor LFT Multiple Myeloma Dr. Howell recommended to continue the revlimid daily Continue dexamethasone weekly Outpatient follow up with Oncology Right shoulder pain Neck pain Denies any injury or trauma Continue pain control Will get xray of right shoulder and neck DVT px will continue Xarelto at 10mg daily as per Oncology due to high risk of clot CODE status Full code Disposition Will monitor closely in tele History of Present Illness Chief Complaint: General Weakness Primary Care Provider: Dk Hernandez PA-C 89 yo female with PMH of CKD stage 3, HTN, DVT, dementia present on admission with general weakness. Pt said that for the last few days she has been very weak and tired. She said that she does not have any energy to do anything. She sad that for the last few days that she has been having very dark stool. she said that she thought that was due to the prune juice. She said that she has been having right shoulder pain and neck pain that gradually worsening. Pt has history of DVT and has been on Xarelto and aspirin. She saw her Oncology Dr. Howell on 08/28 and was started on Revlimid daily and dexamethasone weekly. Her Hgb was 5.4 today. She never had any blood transfusion in the past. Denies any chest pain, palpitation, dizziness, SOB, fever, nausea and vomiting. Allergies Allergy/AdvReac Type Severity Reaction Status Date / Time No Known Allergies Allergy Unverified 09/16/20 09:21 Home Medications Home Medications Medication Instructions Recorded Confirmed Type acetaminophen 500 mg PO Q4H PRN 09/16/20 09/16/20 History aspirin [Aspirin Low-Strength] 81 mg PO DAILY 09/16/20 09/16/20 History cholecalciferol (vitamin D3) 50 mcg PO DAILY 09/16/20 09/16/20 History [Vitamin D3] docusate sodium 100 mg PO DAILY 09/16/20 09/16/20 History donepezil 10 mg PO DAILY 09/16/20 09/16/20 History lenalidomide [Revlimid] 10 mg PO DAILY 09/16/20 09/16/20 History lisinopril 5 mg PO DAILY 09/16/20 09/16/20 History mirtazapine 15 mg PO HS 09/16/20 09/16/20 History nystatin 5 ml PO QID 09/16/20 09/16/20 History oxycodone 5 mg PO Q6H PRN 09/16/20 09/16/20 History rivaroxaban [Xarelto] 15 mg PO DAILY 09/16/20 09/16/20 History simethicone [Mytab Gas 80 mg PO QID PRN 09/16/20 09/16/20 History (simethicone)] vit C,X-Rj-owesq-lutein-zeaxan 1 tab PO DAILY 09/16/20 09/16/20 History [PreserVision AREDS-2] Past Med/Surg History Social History Smoking Status: Current every day smoker Tobacco Type: Cigarettes Cigarettes Per Day: 1 pack; Second Hand Exposure: No; Do You Dip or Chew Tobacco: No; Tobacco Cessation Education Requested by Patient: No Hx Substance Use: No Preferred Language: Kazakh Communication Ability: Effective Technical Report Writer Required: No Beliefs That Will Affect Care: None Current Living Situation: Alone Other Information That Helps Us Care for You: No Feels Safe at Home: Yes Safety Concerns: Feels Safe At This Time Assistive Devices: Denture - Upper, Denture - Lower and Glasses Review of Systems Review of Systems: All systems reviewed & are unremarkable except as noted in HPI & below Physical Exam Physical Exam: General- No acute distress Head- atraumatic Eyes- PERRL, EOMI, ENT- oropharynx clear Neck- supple, no JVD Lungs- No wheezing Heart- regular rhythm; no murmur Abdomen- normal bowel sounds, soft, nontender Extremities- no calf tenderness Neuro- alert, oriented x 3; PERRL, EOMI; no facial palsy; no dysarthria Skin- warm & dry Results & Data Results & Data ([facility]) Vital Signs (Past 12 Hours) Vital Signs Temp Pulse Pulse Resp BP BP Pulse Ox 09/16/20 13:20 36.4 C L 72 16 117/55 L 95 09/16/20 13:03 70 18 116/58 L 98 09/16/20 12:48 72 18 107/71 99 09/16/20 12:35 36.4 C L 09/16/20 12:34 36.4 C L 70 22 98/53 L 100 09/16/20 12:30 75 20 114/59 L 99 09/16/20 12:23 36.6 C 75 18 117/63 98 09/16/20 12:16 36.6 C 72 20 117/63 97 09/16/20 12:14 81 20 117/63 94 09/16/20 12:12 81 21 09/16/20 10:25 70 18 112/63 88 L 09/16/20 09:55 95 09/16/20 08:53 36.7 C 86 16 119/65 97 09/16/20 08:[address] OF THE ABDOMEN AND PELVIS WITH CONTRAST CLINICAL HISTORY: Nausea and myalgias. History of multiple myeloma. COMPARISON STUDY: CT of the abdomen and pelvis May 08, 2016. CT of the left hip July 28, 2016. TECHNIQUE: Following IV administration of 94 mL of Optiray-320, axial images of the abdomen and pelvis were obtained from the lung bases to the proximal femurs. Images were reviewed in the axial, sagittal, and coronal planes. IV contrast was administered without complication. Automated exposure control was utilized for the study. A dose lowering technique was utilized adhering to the principles of ALARA. CT DOSE: 1045.23 mGy.cm FINDINGS: A 1 cm right lower lobe pulmonary nodule on axial image 33 of [address] of May 08, 2016. This is benign given stability. There is moderate cardiomegaly. No pneumatosis, free air or portal venous gas is present. There is trace perihepatic ascites. There is trace fluid within the karen hepatis. Mild biliary ductal dilatation is unchanged since prior exam. This is likely related to cholecystectomy. A 4 mm calcification within the pancreatic head on image 176 is probably adjacent to rather than within the main pancreatic duct although this is difficult to determine with certainty. There is no peripancreatic infiltration. Diverticulum of the second portion the duodenum is noted. There are calcified granulomas within the spleen. Several bilateral renal cysts are noted. There are multiple bilateral renal lesions which are too small to characterize. Right renal calculi measure up to 3 mm. There are no ureteral calculi. No hydronephrosis. A small amount of fluid within the pelvis is noted. Colonic diverticulosis is noted. There is no evidence for acute diverticulitis. There is mild wall thickening of the ascending colon and the proximal transverse colon. No lymphadenopathy is present. There is no evidence for a bowel obstruction. Extensive plaque of the abdominal aorta is noted. Multiple old lower thoracic and lumbar spine compression fractures are present. These are shown on prior exam. IMPRESSION: 1. Apparent wall thickening of the ascending colon and proximal transverse colon. This is likely due to underdistention although a colitis could appear similar. A mucosal lesion is also within the differential but considered less likely. Colonic diverticulosis without evidence for acute diverticulitis. No bowel obstruction. 2. Trace perihepatic ascites. Mild fluid within the karen hepatis. Biliary ductal dilatation which is similar to prior exam and likely related to cholecystectomy. 3. Small amount of ascites within the pelvis. 4. Moderate cardiomegaly and extensive coronary artery calcification. 5. Right nephrolithiasis. ACT 112: Negative or not required by law. Electronically signed by: Shamar Putnam M.D. 09/16/2020 11:58 AM Dictated: 09/16/20 1145Transcribed: 09/16/[address] OF THE HEAD WITHOUT CONTRAST CLINICAL HISTORY: Headache. Weakness. COMPARISON STUDY: Head CT June 20, 2017. TECHNIQUE: Helical axial images of the head were obtained without IV contrast. Automated exposure control was utilized for the study. A dose lowering technique was utilized adhering to the principles of ALARA. FINDINGS: No acute intracranial hemorrhage, midline shift or mass effect is present. White matter hypodensity suggests small vessel disease. 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 Exam is mildly compromised by motion artifact. The ventricular system is unremarkable. The basal cisterns are patent. No extra-axial collections are present. There are no findings to suggest acute dural sinus thrombosis or acute territorial infarct. No significant calvarial abnormalities are present. Visualized portions of the sinuses and mastoid air cells are clear. IMPRESSION: No acute intracranial findings. ACT 112: Negative or not required by law. Electronically signed by: Shamar Putnam M.D. 09/16/2020 11:42 AM Dictated: 09/16/20 1140Transcribed: 09/16/20 1140 XR chest 1V portable CLINICAL HISTORY: weakness COMPARISON STUDY: Chest radiograph April 26, 2016. FINDINGS: Lung volumes are normal. There is no pneumothorax or pleural effusion. There is no consolidation or evidence for pulmonary edema. Moderate cardiomegaly is noted. IMPRESSION: No acute cardiopulmonary findings. Moderate cardiomegaly. ACT 112: Negative or not required by law. Electronically signed by: Shamar Putnam M.D. 09/16/2020 11:08 AM Dictated: 09/16/20 1107Transcribed: 09/16/20 1107 Code Status & VTE Plan VTE Prophylaxis Plan VTE Prophylaxis will be ordered: No (1) Anemia Anemia type: unspecified type Qualified Code(s): D64.9 - Anemia, unspecified
[2020-09-16] MEDS ORDERED: SIMETHICONE 80 MG CHEW PO PRN (15:47)
[2020-09-16] MEDS: oxyCODONE HCL IR 5 MG TAB (IMMEDIATE RELEASE) PO PRN (17:52)
[2020-09-16] MEDS: MIRTAZAPINE TAB 15 MG TAB PO SCH (21:42)
[2020-09-16 22:15] LABS: Appearance Urine Cloudy (Clear); Bacteria Urine Automated Negative (Negative); Bilirubin Urine Negative (Negative); Blood Urine 3+ (Negative); Color Urine Yellow; Epithelial Cell Urine Auto >30 /lpf (0-5); Glucose Urine UA Negative (Negative); Ketones Urine Negative (Negative); Leukocyte Esterase Urine 1+ (Negative); Nitrite Urine Negative (Negative); Protein Urine 1+ (Negative); Specific Gravity Urine > 1.045 (1.000-1.030); Urobilinogen Urine Negative (Negative); WBC Urine Automated >30 /hpf (0-5)
[2020-09-16 22:39] LABS: Hematocrit (blood only) 23.9 % (37-47); Hemoglobin 7.7 g/dL (12.0-16.0)
[2020-09-17] MEDS: oxyCODONE HCL IR 5 MG TAB (IMMEDIATE RELEASE) PO PRN (04:23)
--- NOTE | 2020-09-17 06:34 | XRay Report ---
XR shoulder RT min 2V routine HISTORY: 89 years-old Female shoulder pain acute neck and right shoulder pain without reported traum a COMPARISON: Chest radiograph 09/16/2020 TECHNIQUE: 3 views of the right shoulder FINDINGS: Demineralized appearance the bones. Mild glenohumeral with moderate AC joint osteoarthritis. Spurring of the acromium and greater tuberosity. No acute fracture, dislocation or opaque foreign body. Calci fied plaque of the thoracic aortic arch. Interstitial opacities of the lungs. IMPRESSION: No acute fracture or dislocation. ACT 112: Negative or not required by law. The above report was generated using voice recognition software. It may contain grammatical, syntax o r spelling errors. Electronically signed by: Arsenio Montero M.D. 09/17/2020 6:33 AM
[2020-09-17 07:21] LABS: Hematocrit (blood only) 23.5 % (37-47); Hemoglobin 7.8 g/dL (12.0-16.0); Mean Corpuscular Hemoglobin 29.9 pg (25-34); Mean Corpuscular Hgb Conc 33.2 g/dL (32-36); Mean Platelet Volume 10.8 fL (7.4-10.4); Platelet Count 108 K/uL (130-400); RDW Coefficient of Variation 17.3 % (11.5-14.5); RDW Standard Deviation 56.1 fL (36.4-46.3); Red Blood Count 2.61 M/uL (4.2-5.4); White Blood Count 4.23 K/uL (4.8-10.8)
[2020-09-17] MEDS: ACETAMINOPHEN 500 MG TAB PO PRN ×2 (07:42→20:19)
[2020-09-17] MEDS: RIVAROXABAN 10 MG TABLET PO SCH (07:42)
[2020-09-17] MEDS: DONEPEZIL HCL 10 MG TAB PO SCH (07:42)
[2020-09-17 07:55] LABS: Albumin Globulin Ratio 0.3 (0.9-2); Albumin Level 2.2 gm/dl (3.4-5.0); BUN Creatinine Ratio 15.5 (10-20); Bilirubin,Total 0.4 mg/dl (0.2-1); Calcium 8.1 mg/dl (8.5-10.1); Creatinine Clr Calc Pharmacy 36.9 ml/min; Est GFR (African American) 65.3; Est GFR (Non-African American) 56.3; Globulin 6.6 gm/dl (2.5-4.0); Potassium 3.5 mmol/L (3.5-5.1); Total Protein 8.8 gm/dl (6.4-8.2); Troponin I 0.632 ng/ml (0-0.045)
--- NOTE | 2020-09-17 07:55 | XRay Report ---
XR cervical spine 2 or 3V CLINICAL HISTORY: Neck pain COMPARISON STUDY: No previous studies for comparison. FINDINGS: The prevertebral soft tissues are normal. No fractures or subluxations are visualized. Ther e are multilevel degenerative changes, most pronounced at the C6-7 level. Note is made of prominent a therosclerotic carotid calcifications on the left. IMPRESSION: Degenerative changes most pronounced the C6-7 level. No acute fractures. ACT 112: Negative or not required by law. Electronically signed by: Mark Kothari M.D. 09/17/2020 7:54 AM
[2020-09-17] MEDS ORDERED: PANTOPRAZOLE BOLUS/DRIP 1 EA IV STA (08:46)
[2020-09-17] MEDS ORDERED: PANTOprazole 80 MG in DEXTROSE 5% 100 ML IV ONE (08:50)
--- NOTE | 2020-09-17 08:53 | Gastrointestinal Consultation ---
Date of Consultation September 17, 2020 Assessment & Plan (1) Anemia: (2) Melena: Pt is a 89 y/o female admitted w anemia, melena; treated w 2U PRBC transfusion and blood ct is responding. CT abd/pelvis w signs of slight ascending & transverse colon thickening ? colitis. - PPI bolus and gtt - Keep NPO - Will plan for EGD eval by Dr. Welch today - If diarrhea, check stool cx and Cdiff Attg add: I interviewed and examined pt, reviewed chart and labs. Pt with MM on revlimid, also Xarelto, now admit with melena, anemia. Hgb presently WNL, hgb stable, BUN WNL. On lower dose xarelto, plts/WBC OK. EGD today. History of Present Illness Reason for Consultation: Anemia, black stool Requesting Physician: Dr. Magnus Lott Attending Physician: Dr. Kim Welch History of Present Illness Pt is a 89 y/o female w hx of multiple myeloma on Revlimid & Decadron who presented w at least 2 weeks of fatigue and black stools. Upon evaluation, noted severely anemic H/H 5.4/16. She received 2U PRBC transfusion, current H/H 7.8/23. BN 22 -> 14. She is having nausea, but no vomiting. Denies abd pain. Last BM overnight, black and soft per RN chart. Pt smoke 3/4 PPD, denies ETOH, denies NSAIDs. CT abd/pelvis w contrast: 1. Apparent wall thickening of the ascending colon and proximal transverse colon. This is likely due to underdistention although a colitis could appear similar. A mucosal lesion is also within the differential but considered less likely. Colonic diverticulosis without evidence for acute diverticulitis. No bowel obstruction. 2. Trace perihepatic ascites. Mild fluid within the karen hepatis. Biliary ductal dilatation which is similar to prior exam and likely related to cholecystectomy. 3. Small amount of ascites within the pelvis. 4. Moderate cardiomegaly and extensive coronary artery calcification. 5. 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 Allergies Allergy/AdvReac Type Severity Reaction Status Date / Time No Known Allergies Allergy Unverified 09/16/20 09:21 Home Medications Home Medications Medication Instructions Recorded Confirmed Type acetaminophen 500 mg PO Q4H PRN 09/16/20 09/16/20 History aspirin [Aspirin Low-Strength] 81 mg PO DAILY 09/16/20 09/16/20 History cholecalciferol (vitamin D3) 50 mcg PO DAILY 09/16/20 09/16/20 History [Vitamin D3] docusate sodium 100 mg PO DAILY 09/16/20 09/16/20 History donepezil 10 mg PO DAILY 09/16/20 09/16/20 History lenalidomide [Revlimid] 10 mg PO DAILY 09/16/20 09/16/20 History lisinopril 5 mg PO DAILY 09/16/20 09/16/20 History mirtazapine 15 mg PO HS 09/16/20 09/16/20 History nystatin 5 ml PO QID 09/16/20 09/16/20 History oxycodone 5 mg PO Q6H PRN 09/16/20 09/16/20 History rivaroxaban [Xarelto] 15 mg PO DAILY 09/16/20 09/16/20 History simethicone [Mytab Gas 80 mg PO QID PRN 09/16/20 09/16/20 History (simethicone)] vit C,B-Qi-twldb-lutein-zeaxan 1 tab PO DAILY 09/16/20 09/16/20 History [PreserVision AREDS-2] Patient History Social History Smoking Status: Current every day smoker Tobacco Type: Cigarettes Cigarettes Per Day: 1 pack; Second Hand Exposure: No; Do You Dip or Chew Tobacco: No; Tobacco Cessation Education Requested by Patient: No Hx Substance Use: No Preferred Language: Tajik Communication Ability: Effective Perianesthesia Nurse Required: No Beliefs That Will Affect Care: None Current Living Situation: Alone Other Information That Helps Us Care for You: No Feels Safe at Home: Yes Safety Concerns: Feels Safe At This Time Assistive Devices: Denture - Upper, Denture - Lower and Glasses Review of Systems Review of Systems: All systems reviewed & are unremarkable except as noted in HPI & below Physical Exam Constitutional: WD/WN, vitals as above well groomed, cooperative and comfortable Eyes: PERRL, conjunctivae normal, anicteric sclerae ENMT: external ear and nose normal, oropharynx normal Respiratory: normal respiratory effort, lungs clear to auscultation Cardiovascular: RRR, no murmur, no edema Gastrointestinal (Abdomen): Inspection/Auscultation: + hypoactive bowel sounds Percussion/Palpation: abdomen soft; abdomen nontender Skin: no rashes, warm and dry no jaundice Neurologic: Resting tremor R hand Psychiatric: A+Ox3, euthymic affect Lymphatic: no lymphedema Results & Data ([facility]) Vital Signs (Past 12 Hours) Vital Signs Temp Pulse Pulse Resp BP Pulse Ox 09/17/20 07:41 36.9 C 75 16 127/70 94 09/17/20 07:24 70 09/17/20 04:00 36.6 C 75 18 119/67 92 09/17/20 01:12 69 09/16/20 23:00 36.5 C 66 18 123/66 92 (1) Anemia Anemia type: unspecified type Qualified Code(s): D64.9 - Anemia, unspecified
[2020-09-17] MEDS ORDERED: PANTOprazole 40 MG in DEXTROSE 5% 100 ML IV SCH (09:01)
--- NOTE | 2020-09-17 09:26 | Anesthesiology Consultation ---
Date of Service September 17, 2020 Assessment & Plan (1) Encounter for pre-operative examination: Chart Review Chart Review: Acceptable Risk for Surgery and Patient NOT seen in Pre Admission Testing Consults Requested none ASA ASA4 Proposed Anesthesia Anesthesia Type: MAC Risk / Benefits Reviewed With: PT / POA / Parent / Guardian, Accepts Plan and Informed Consent Obtained History Surgery Operation Date: 09/17/20 16:30 Proposed Procedures p Esophagogastroduodenoscopy Dr Tubbs - Kim Welch MD Height/Weight Height: 5 ft 4 in Weight: 55.4 kg Allergies Allergy/AdvReac Type Severity Reaction Status Date / Time No Known Allergies Allergy Unverified 09/16/20 09:21 Medications Home Medications Medication Instructions Recorded Confirmed Last Taken acetaminophen 500 mg PO Q4H PRN 09/16/20 09/16/20 Unknown aspirin [Aspirin Low-Strength] 81 mg PO DAILY 09/16/20 09/16/20 09/16/20 cholecalciferol (vitamin D3) 50 mcg PO DAILY 09/16/20 09/16/20 09/16/20 [Vitamin D3] docusate sodium 100 mg PO DAILY 09/16/20 09/16/20 09/16/20 donepezil 10 mg PO DAILY 09/16/20 09/16/20 09/16/20 lenalidomide [Revlimid] 10 mg PO DAILY 09/16/20 09/16/20 09/16/20 lisinopril 5 mg PO DAILY 09/16/20 09/16/20 09/16/20 mirtazapine 15 mg PO HS 09/16/20 09/16/20 09/15/20 nystatin 5 ml PO QID 09/16/20 09/16/20 09/16/20 oxycodone 5 mg PO Q6H PRN 09/16/20 09/16/20 09/16/20 rivaroxaban [Xarelto] 15 mg PO DAILY 09/16/20 09/16/20 09/16/20 simethicone [Mytab Gas 80 mg PO QID PRN 09/16/20 09/16/20 09/16/20 (simethicone)] vit C,D-Px-bspkm-lutein-zeaxan 1 tab PO DAILY 09/16/20 09/16/20 09/16/20 [PreserVision AREDS-2] Active Medications Generic Name Dose Route Start Last Admin Trade Name Freq PRN Reason Stop Dose Admin Acetaminophen 500 mg 09/16/20 15:52 09/17/20 07:42 Acetaminophen 500 Mg Tab PO 10/16/20 15:51 500 mg Q4H PRN Administration Fever Donepezil HCl 10 mg 09/17/20 09:00 09/17/20 07:42 Donepezil Hcl 10 Mg Tab PO 10/17/20 08:59 10 mg DAILY MARIAELENA Administration Mirtazapine 15 mg 09/16/20 21:00 09/16/20 21:42 Mirtazapine Tab 15 Mg Tab PO 10/16/20 20:59 15 mg HS MARIAELENA Administration Miscellaneous 1 ea 09/16/20 16:00 09/17/20 07:51 Lenalidomide -Order Awaiting Action N/A 10/16/20 15:59 Not Given QS MARIAELENA Oxycodone HCl 5 mg 09/16/20 15:55 09/17/20 04:23 Oxycodone Hcl Ir 5 Mg Tab (Immediate Release) PO 09/30/20 15:54 5 mg Q6H PRN Administration Pain Rivaroxaban 10 mg 09/17/20 09:00 09/17/20 07:42 Rivaroxaban 10 Mg Tablet PO 10/17/20 08:59 10 mg DAILY MARIAELENA Administration NPO Date Last Intake of Fluids: 09/17/20 Time Last Intake of Fluids: 06:00 Date Last Intake of Solids: 09/16/20 Time Last Intake of Solids: 08:00 Exercise / Class Metabolic Activity III < 4 Walking/Shop/Light housework Past Anesthesia History No Hx of Anesthesia Complications and No Family Hx of Anesthesia Complications History of PONV No Hx of PONV and No Hx of Motion Sickness Social History Smoking Status: Current every day smoker tobacco type: cigarettes Smoking cigarettes per day: 1 pack Do You Dip or Chew Tobacco: No Hx Substance Use: No Physical Exam Vital Signs Last Vital Signs Temp 36.9 C 09/17/20 07:41 Pulse 75 09/17/20 07:41 Resp 16 09/17/20 07:41 BP 127/70 09/17/20 07:41 Pulse Ox 94 09/17/20 07:41 ENMT Mouth: no dentition abnormality Thyromental Distance: > or= 3.5 Finger Breadths Mallampati Class: II Neck normal visual inspection Respiratory normal respiratory effort Auscultation: lungs clear to auscultation bilaterally Cardiovascular Rate/Rhythm: regular rate and regular rhythm Psychiatric Orientation: alert Testing Laboratory Results 09/17/20 07:00 09/17/20 07:00 PT 12.9 Seconds (9.0-12.0) H 09/16/20 11:38 INR 1.2 (0.9-1.1) H 09/16/20 11:38 APTT Cancelled 09/16/20 09:56 Urine Color Yellow 09/16/20 21:50 Urine Appearance Cloudy (Clear) A 09/16/20 21:50 Urine pH 5.0 (4.5-7.5) 09/16/20 21:50 Ur Specific [place] > 1.045 (1.000-1.030) H 09/16/20 21:50 Urine Protein 1+ (Negative) H 09/16/20 21:50 Urine Glucose (UA) Negative (Negative) 09/16/20 21:50 Urine Ketones Negative (Negative) 09/16/20 21:50 Urine Nitrite Negative (Negative) 09/16/20 21:50 Ur Leukocyte Esterase 1+ (Negative) H 09/16/20 21:50 Urine WBC (Auto) >30 /hpf (0-5) H 09/16/20 21:50 Urine RBC (Auto) 5-10 /hpf (0-4) H 09/16/20 21:50 U Hyaline Cast (Auto) 1-5 /lpf (0-5) 09/16/20 21:50 U Epithel Cells (Auto) >30 /lpf (0-5) H 09/16/20 21:50 Urine Bacteria (Auto) Negative (Negative) 09/16/20 21:50 Blood Type A Negative 09/16/20 10:32 Antibody Screen NEGATIVE 09/16/20 10:32
--- NOTE | 2020-09-17 10:00 | Electrocardiogram Report ---
Test Reason : Blood Pressure : / mmHG Vent. Rate : 067 BPM Atrial Rate : 067 BPM P-R Int : 238 ms QRS Dur : 100 ms QT Int : 414 ms P-R-T Axes : 087 055 029 degrees QTc Int : 437 ms Sinus rhythm with blocked PAC with 1st degree A-V block Nonspecific ST and T wave abnormality Abnormal ECG When compared with ECG of 16-SEP-2020 09:51, Blocked atrial-paced complexes is new Confirmed by Hay Covarrubias ([id number] on 09/17/2020 10:00:01 AM Referred By: REFERRED SELF Confirmed By:Hay Covarrubias
[2020-09-17] MEDS ORDERED: PROPOFOL IV EMULSION 10 MG/ML 20 ML VIAL IV ONE (10:01)
[2020-09-17] MEDS ORDERED: LIDOCAINE HCL 2% 2 ML VIAL/AMP(20MG/ML) INFIL ONE (10:01)
--- NOTE | 2020-09-17 10:06 | GI REPORT ---
Patient Name: Arlen Wagner Procedure Date: 09/17/2020 9:40 AM Date of : 1930 Admit Type: Inpatient Age: 89 Gender: Female Attending MD: Kim Welch MD Procedure: Upper GI endoscopy Providers: Kim Welch MD Referring MD: Tylor Orozco pa-c, Md Indications: Melena Medicines: See the Anesthesia note for documentation of the administered medications Complications: No immediate complications. Estimated Blood Loss: Estimated blood loss: none. Procedure: Pre-Anesthesia Assessment: - ASA Grade Assessment: IV - A patient with severe systemic disease that is a constant threat to life. After obtaining informed consent, the endoscope was passed under direct vision. Throughout the procedure, the patient's blood pressure, pulse, and oxygen saturations were monitored continuously. The Endoscope was introduced through the mouth, and advanced to the fourth part of duodenum. The upper GI endoscopy was accomplished without difficulty. The patient tolerated the procedure well. Findings: The GE junction was at 31 cm. There was a faint ring at the GE junction. There was a moderate sized hiatal hernia. There was scant candidal plaques in the upper esophagus. The antrum was markedly deformed. There were a few superficial erosions in the antrum. There were flecks of heme in the stomach, and bilious fluid in the stomach. The duodenal bulb was deformed. There were two superficial erosions in the bulb. There was villous flattening in the second portion of the duodenum. There was bilious fluid in the duodenum. Impression: - No source of upper GI bleed. Recommendation: - Return patient to floor. Follow for recurrent GI bleeding, may consider cscopy to look for AVM's if clinically significant ongoing GIB. - Clears today. - Continue lower dose of Xarelto for now, may resume higher dose if hgb stable x 3 days. Kim Welch M.D. Kim Welch MD 09/17/2020 10:05:50 AM This report has been signed electronically. Note Initiated On: 09/17/2020 9:40 AM Number of Addenda: 0 I attest to the content of the Intraoperative Record and orders documented therein, exceptions below {[id number]}
[2020-09-17] MEDS ORDERED: Nursing to Pharmacy Communication SCH (11:00)
[2020-09-17] MEDS: CEROVITE ADV FORMULA TAB PO SCH (11:55)
[2020-09-17] MEDS: CHOLECALCIFEROL 1,000 UNITS 25 MCG TAB PO SCH (11:55)
[2020-09-17] MEDS: DOCUSATE SODIUM 100 MG CAP PO SCH (11:56)
--- NOTE | 2020-09-17 12:19 | XCELERA ---
[id number]___[id number]
--- NOTE | 2020-09-17 12:28 | Anesthesiology Progress Note ---
Date of Service September 17, 2020 Anesthesia Post Procedure Vital Signs Vital Signs: Temp Pulse Pulse Pulse Resp BP BP 09/17/20 11:14 36.4 C L 74 22 09/17/20 10:53 36.3 C L 68 16 147/73 H 09/17/20 10:36 67 16 124/65 09/17/20 10:22 74 17 121/65 09/17/20 10:07 78 16 100/69 09/17/20 09:30 37 C 82 20 140/92 09/17/20 07:41 36.9 C 75 16 127/70 09/17/20 07:24 70 09/17/20 04:00 36.6 C 75 18 119/67 09/17/20 01:12 69 09/16/20 23:00 36.5 C 66 18 123/66 09/16/20 20:32 36.3 C L 71 18 125/68 09/16/20 19:43 36.3 C L 74 18 115/69 09/16/20 18:43 36.2 C L 71 18 101/66 09/16/20 18:37 36.3 C L 69 18 104/63 09/16/20 17:43 36.3 C L 94 H 18 102/61 09/16/20 17:13 37.1 C 70 18 138/80 09/16/20 17:00 36.4 C L 69 20 113/58 L 09/16/20 16:42 36.5 C 65 18 103/59 L 09/16/20 16:39 36.5 C 65 18 103/59 L 09/16/20 16:06 36.7 C 76 18 118/55 L 09/16/20 14:20 36.5 C 75 18 124/66 09/16/20 14:00 65 18 124/66 09/16/20 13:20 36.4 C L 72 16 117/55 L 09/16/20 13:03 70 18 116/58 L 09/16/20 12:48 72 18 107/71 09/16/20 12:35 36.4 C L 09/16/20 12:34 36.4 C L 70 22 98/53 L 09/16/20 12:30 75 20 114/59 L BP Pulse Ox 09/17/20 11:14 115/68 94 09/17/20 10:53 95 09/17/20 10:36 95 09/17/20 10:22 96 09/17/20 10:07 95 09/17/20 09:30 97 09/17/20 07:41 94 09/17/20 07:24 09/17/20 04:00 92 09/17/20 01:12 09/16/20 23:00 92 09/16/20 20:32 93 09/16/20 19:43 09/16/20 18:43 93 09/16/20 18:37 95 09/16/20 17:43 96 09/16/20 17:13 96 09/16/20 17:00 96 09/16/20 16:42 97 09/16/20 16:39 97 09/16/20 16:06 96 09/16/20 14:20 98 09/16/20 14:00 95 09/16/20 13:20 95 09/16/20 13:03 98 09/16/20 12:48 99 09/16/20 12:35 09/16/20 12:34 100 09/16/20 12:30 99 Pain Intensity Right Neck: Pain Intensity: 4 Transfer of Care Handoff Completed per policy Notes Mental Status: alert / awake / arousable Patient Amnestic to Procedure: Yes Nausea / Vomiting: adequately controlled Pain: adequately controlled Airway Patency, RR, SpO2: stable & adequate BP & HR: stable & adequate Hydration State: stable & adequate Anesthetic Complications: no major complications apparent
[2020-09-17 14:17] LABS: Hematocrit (blood only) 24.1 % (37-47); Hemoglobin 7.6 g/dL (12.0-16.0)
--- NOTE | 2020-09-17 16:34 | Hospitalist Progress Note ---
Date of Service September 17, 2020 Assessment & Plan (1) Anemia: Acute on chronic anemia Likely multifactorial: Acute GI bleed, multiple myeloma, Secondary to medications--Aspirin, Xarelto Pancytopenia Hb:5.4>>7.6 S/P 2 units PRBCs Monitor CBC, Transfuse PRBCs as needed S/P EGD:No source of upper GI bleed IV PPI discontinued Appreciate GI input Consider colonoscopy if recurrence of bleeding Xarelto dose decreased to 10 mg daily given very high risk for clotting--recommended by primary oncologist Aspirin held for now If hemoglobin remains stable, plan to increase Xarelto back to 50 mg daily Clear liquid diet for now Generalized Weakness Likely secondary to profound anemia PT/OT Fall precaution Elevated troponin Likely due to demand ischemia --type II SC in setting of profound anemia Troponin trended down Patient denies chest pain EKG: Nonspecific ST, T wave abnormality Echo:No regional wall motion abnormality Aspirin on hold secondary to above Monitor Mild Transaminitis CT abd/pelvis showed apparent wall thickening of the ascending colon and proximal transverse colon. This is likely due to underdistention although a colitis could appear similar. Monitor LFT Multiple Myeloma Follows with Dr. Howell--[facility] oncology Continue Revlimid daily Also on dexamethasone weekly Needs follow up with Oncology upon discharge Right shoulder pain Likely due to arthritis Shoulder X ray:No acute fracture or dislocation. DVT Px: Xarelto CODE status Full code as per my discussion with patient Disposition PT/OT prior to discharge Admission and Anticipated Discharge Date Admission Date: September 16, 2020 Subjective Patient is seen and examined at bedside States feeling tired Received 2 units of PRBCs overnight Discussed with GI today No bowel movement, melena this morning Also discussed with family at bedside Denies chest pain, dyspnea, dizziness, nausea, abdominal pain Offers no other complaints Review of Systems Review of Systems: All systems reviewed & are unremarkable except as noted in HPI & below Physical Exam Physical Exam: Physical Exam: Vitals signs as noted above General Appearance:Moderately built and nourished, no apparent distress Head: normocephalic, Atraumatic Eyes: normal inspection, EOMI, + Pallor Neck: supple, Trachea midline Respiratory/Chest: Normal breath sounds, + Basal Crackles Cardiovascular: S1, S2, No murmur Abdomen/GI:Soft, Non tender, Bowel sounds present Extremities/Musculoskelatal:normal inspection, no edema Neurologic/Psych:AAOX3, grossly no focal neurological deficits Skin: normal color, warm Results & Data Results & Data ([facility]) Vital Signs (Past 12 Hours) Vital Signs Temp Pulse Pulse Pulse Resp BP BP 09/17/20 15:34 36.5 C 73 18 99/63 L 09/17/20 15:25 82 09/17/20 11:14 36.4 C L 74 22 115/68 09/17/20 10:53 36.3 C L 68 16 147/73 H 09/17/20 10:36 67 16 124/65 09/17/20 10:22 74 17 121/65 09/17/20 10:07 78 16 100/69 09/17/20 09:30 37 C 82 20 140/92 09/17/20 07:41 36.9 C 75 16 127/70 09/17/20 07:24 70 Pulse Ox 09/17/20 15:34 91 09/17/20 15:25 09/17/20 11:14 94 09/17/20 10:53 95 09/17/20 10:36 95 09/17/20 10:22 96 09/17/20 10:07 95 09/17/20 09:30 97 09/17/20 07:41 94 09/17/20 07:24 Laboratory Results Short CBC 09/16/20 09/17/20 09/17/20 Range/Units 22:26 07:00 14:05 WBC 4.23 L (4.8-10.8) K/uL Hgb 7.7 L 7.8 L 7.6 L (12.0-16.0) g/dL Hct 23.9 L 23.5 L 24.1 L (37-47) % Plt Count 108 L (130-400) K/uL BMP 09/17/20 07:00 Sodium 139 Potassium 3.5 Chloride 110 H Carbon Dioxide 22 BUN 14 Creatinine 0.91 Glucose 86 Calcium 8.1 L Cardiac Enzymes 09/16/20 09/16/20 09/17/20 Range/Units 17:08 22:26 07:00 Troponin I 0.462 H* 0.696 H* 0.632 H* (0-0.045) ng/ml 09/17/20 Range/Units 14:05 Troponin I 0.464 H* (0-0.045) ng/ml Liver Function 09/17/20 Range/Units 07:00 Total Bilirubin 0.4 (0.2-1) mg/dl AST 60 H (15-37) U/L ALT 84 H (12-78) U/L Alkaline Phosphatase 55 (45-117) U/L Albumin 2.2 L (3.4-5.0) gm/dl Urine 09/16/20 Range/Units 21:50 Urine Color Yellow Urine Appearance Cloudy A (Clear) Urine pH 5.0 (4.5-7.5) Ur Specific [place] > 1.045 H (1.000-1.030) Urine Protein 1+ H (Negative) Urine Glucose (UA) Negative (Negative) (1) Anemia Anemia type: unspecified type Qualified Code(s): D64.9 - Anemia, unspecified
[2020-09-17] MEDS ORDERED: SODIUM CHLORIDE 0.9% 500 ML IV ONE (20:00)
[2020-09-17] MEDS: MIRTAZAPINE TAB 15 MG TAB PO SCH (20:20)
[2020-09-17 20:21] LABS: Hematocrit (blood only) 22.1 % (37-47); Hemoglobin 7.2 g/dL (12.0-16.0)
[2020-09-17 20:47] LABS: BUN Creatinine Ratio 12.8 (10-20); Calcium 7.9 mg/dl (8.5-10.1); Creatinine Clr Calc Pharmacy 33.4 ml/min; Est GFR (African American) 65.3; Est GFR (Non-African American) 56.3; Potassium 3.2 mmol/L (3.5-5.1)
[2020-09-18] MEDS: oxyCODONE HCL IR 5 MG TAB (IMMEDIATE RELEASE) PO PRN ×2 (06:26→15:38)
[2020-09-18 07:47] LABS: Hemoglobin 7.2 g/dL (12.0-16.0); Mean Corpuscular Hemoglobin 28.6 pg (25-34); Mean Corpuscular Hgb Conc 31.3 g/dL (32-36); Mean Corpuscular Volume 91.3 fL (80-100); Mean Platelet Volume 11.3 fL (7.4-10.4); Platelet Count 121 K/uL (130-400); RDW Coefficient of Variation 17.7 % (11.5-14.5); RDW Standard Deviation 57.4 fL (36.4-46.3); Red Blood Count 2.52 M/uL (4.2-5.4); White Blood Count 3.78 K/uL (4.8-10.8)
[2020-09-18] MEDS: RIVAROXABAN 10 MG TABLET PO SCH (08:05)
[2020-09-18] MEDS: DONEPEZIL HCL 10 MG TAB PO SCH (08:05)
[2020-09-18] MEDS: CEROVITE ADV FORMULA TAB PO SCH (08:05)
[2020-09-18] MEDS: DOCUSATE SODIUM 100 MG CAP PO SCH (08:05)
[2020-09-18] MEDS: CHOLECALCIFEROL 1,000 UNITS 25 MCG TAB PO SCH (08:05)
[2020-09-18 08:18] LABS: BUN Creatinine Ratio 10.9 (10-20); Calcium 8.1 mg/dl (8.5-10.1); Creatinine Clr Calc Pharmacy 33.9 ml/min; Est GFR (African American) 66.2; Est GFR (Non-African American) 57.1
[2020-09-18 08:21] LABS: Albumin Globulin Ratio 0.3 (0.9-2); Bilirubin,Total 0.6 mg/dl (0.2-1); Globulin 6.6 gm/dl (2.5-4.0); Total Protein 8.6 gm/dl (6.4-8.2)
[2020-09-18] MEDS ORDERED: POTASSIUM CHLORIDE CRTAB 20 MEQ TABCR PO ONE (08:44)
[2020-09-18] MEDS ORDERED: POTASSIUM CHLORIDE / WTR 10 MEQ/100 ML PLCT IV STA (08:45)
[2020-09-18] MEDS ORDERED: POTASSIUM CHLORIDE 40 MEQ in SODIUM CHLORIDE 0.9% 1000ML 500 ML IV ONE (09:30)
[2020-09-18] MEDS ORDERED: POTASSIUM CHLORIDE 40 MEQ in SODIUM CHLORIDE 0.9% 500 ML IV ONE (09:30)
--- NOTE | 2020-09-18 10:35 | Gastroenterology Progress Note ---
Date of Service September 18, 2020 Assessment & Plan (1) Anemia: (2) Melena: Pt is a 89 y/o female admitted w anemia, melena; treated w 2U PRBC transfusion and blood ct is responding. CT abd/pelvis w signs of slight ascending & transverse colon thickening ? colitis. EGD 09/17 doesn't show signs of UGI bleed. Blood ct continues to be stable, no signs of stella GI bleeding noted. - Ok to restart Xarelto (hx of DVT) on lower dose then if blood ct stable x 3 days may resume regular dose - Pt wants to defer colonoscopy. In light of stable blood ct and no stella s/s of GI bleeding this seems reasonable. - GI to sign off; pls recall prn Admission and Anticipated Discharge Date Admission Date: September 16, 2020 Supervising Physician Co-Signing Physician Notes I have discussed the patient's management with the advanced practitioner. Please refer to the nurse practitioner's note for the documented findings and plan of care. Subjective Pt hasn't had any more abd pain, n/v. Denies BM. Tolerating CL diet well. Blood ct stable, BUN remains normal Review of Systems Review of Systems: All systems reviewed & are unremarkable except as noted in HPI & below Physical Exam Constitutional: WD/WN, vitals as above well groomed, cooperative and comfortable Eyes: PERRL, conjunctivae normal, anicteric sclerae ENMT: external ear and nose normal, oropharynx normal Respiratory: normal respiratory effort, lungs clear to auscultation Cardiovascular: RRR, no murmur, no edema Gastrointestinal (Abdomen): normal bowel sounds, soft, nontender, no hepatosplenomegaly Skin: no rashes, warm and dry no jaundice Psychiatric: A+Ox3, euthymic affect Lymphatic: no lymphedema Results & Data ([facility]) Vital Signs (Past 12 Hours) Vital Signs Temp Pulse Pulse Resp BP Pulse Ox 09/18/20 07:19 36.5 C 72 18 95/57 L 91 09/18/20 04:00 36.7 C 72 18 107/60 94 09/18/20 00:00 76 09/17/20 23:00 36.7 C 72 18 106/54 L 93 09/17/20 22:40 36.8 C 80 20 100/57 L 91 (1) Anemia Anemia type: unspecified type Qualified Code(s): D64.9 - Anemia, unspecified
[2020-09-18] MEDS: LENALIDOMIDE PO SCH (13:43)
[2020-09-18 13:52] LABS: Hematocrit (blood only) 23.4 % (37-47); Hemoglobin 7.6 g/dL (12.0-16.0)
--- NOTE | 2020-09-18 16:49 | Hospitalist Progress Note ---
Date of Service September 18, 2020 Assessment & Plan (1) Anemia: Acute on chronic anemia Likely multifactorial: Acute GI bleed, multiple myeloma, Secondary to medications--Aspirin, Xarelto Pancytopenia Hb:5.4>>7.6>7.2>7.6 S/P 2 units PRBCs Monitor CBC, Transfuse PRBCs as needed S/P EGD:No source of upper GI bleed IV PPI discontinued Appreciate GI input Consider colonoscopy if recurrence of bleeding Xarelto dose decreased to 10 mg daily given very high risk for clotting--recommended by primary oncologist Aspirin held for now If hemoglobin remains stable, plan to increase Xarelto back to 50 mg daily Advance diet today Continue to monitor CBC Needs follow-up with GI upon discharge Generalized Weakness Likely secondary to profound anemia PT recommends to return home OT recommends 24-hour care Fall precaution Family is concerned about providing 24-hour care ? Permanent placement in consideration as per patient's daughter Needs home health arranged Hypokalemia Likely due to poor oral intake Check magnesium levels Replete electrolytes as needed Elevated troponin Likely due to demand ischemia --type II NC in setting of profound anemia Troponin trended down Patient denies chest pain EKG: Nonspecific ST, T wave abnormality Echo:No regional wall motion abnormality Aspirin on hold secondary to above Monitor Mild Transaminitis CT abd/pelvis showed apparent wall thickening of the ascending colon and proximal transverse colon. This is likely due to underdistention although a colitis could appear similar. Resolved Monitor LFT Multiple Myeloma Follows with Dr. Howell--[facility] oncology Continue Revlimid daily Also on dexamethasone weekly Needs follow up with Oncology upon discharge Right shoulder pain Likely due to arthritis Shoulder X ray:No acute fracture or dislocation. DVT Px: Xarelto CODE status Full code as per my discussion with patient Disposition Likely Home with Admission and Anticipated Discharge Date Admission Date: September 16, 2020 Subjective Patient is seen and examined at bedside Reports chronic back pain, significant generalized weakness Has poor oral intake Discussed with patient's daughter at bedside in detail No melena, BRBPR Denies chest pain, dyspnea, dizziness, nausea, abdominal pain Offers no other complaints Review of Systems Review of Systems: All systems reviewed & are unremarkable except as noted in HPI & below Physical Exam Physical Exam: Physical Exam: Vitals signs as noted above General Appearance:Moderately built and nourished, no apparent distress Head: normocephalic, Atraumatic Eyes: normal inspection, EOMI, + Pallor Neck: supple, Trachea midline Respiratory/Chest: Normal breath sounds, + Basal Crackles Cardiovascular: S1, S2, No murmur Abdomen/GI:Soft, Non tender, Bowel sounds present Extremities/Musculoskelatal:normal inspection, no edema Neurologic/Psych:AAOX3, grossly no focal neurological deficits Skin: normal color, warm Results & Data Results & Data ([facility]) Vital Signs (Past 12 Hours) Vital Signs Temp Pulse Pulse Resp BP Pulse Ox 09/18/20 15:36 36.7 C 69 18 105/64 95 09/18/20 14:58 68 09/18/20 11:28 36.7 C 63 18 110/63 94 09/18/20 07:19 36.5 C 72 18 95/57 L 91 Laboratory Results Short CBC 09/17/20 09/18/20 09/18/20 Range/Units 20:03 07:06 13:43 WBC 3.78 L (4.8-10.8) K/uL Hgb 7.2 L 7.2 L 7.6 L (12.0-16.0) g/dL Hct 22.1 L 23.0 L 23.4 L (37-47) % Plt Count 121 L (130-400) K/uL BMP 09/17/20 09/18/20 20:03 07:06 Sodium 140 140 Potassium 3.2 L 3.0 L Chloride 112 H 112 H Carbon Dioxide 22 22 BUN 12 10 Creatinine 0.91 0.90 Glucose 95 88 Calcium 7.9 L 8.1 L Liver Function 09/18/20 Range/Units 07:06 Total Bilirubin 0.6 (0.2-1) mg/dl AST 34 (15-37) U/L ALT 65 (12-78) U/L Alkaline Phosphatase 59 (45-117) U/L Albumin 2.0 L (3.4-5.0) gm/dl (1) Anemia Anemia type: unspecified type Qualified Code(s): D64.9 - Anemia, unspecified
[2020-09-18 20:25] LABS: Hematocrit (blood only) 23.4 % (37-47); Hemoglobin 7.5 g/dL (12.0-16.0)
[2020-09-18] MEDS: MIRTAZAPINE TAB 15 MG TAB PO SCH (20:51)
[2020-09-19] MEDS: oxyCODONE HCL IR 5 MG TAB (IMMEDIATE RELEASE) PO PRN ×2 (01:33→08:02)
[2020-09-19 06:44] LABS: Hematocrit (blood only) 23.7 % (37-47); Hemoglobin 7.5 g/dL (12.0-16.0); Mean Corpuscular Hemoglobin 29.2 pg (25-34); Mean Corpuscular Hgb Conc 31.6 g/dL (32-36); Mean Corpuscular Volume 92.2 fL (80-100); Mean Platelet Volume 10.7 fL (7.4-10.4); Platelet Count 135 K/uL (130-400); RDW Coefficient of Variation 17.8 % (11.5-14.5); RDW Standard Deviation 58.2 fL (36.4-46.3); Red Blood Count 2.57 M/uL (4.2-5.4); White Blood Count 4.08 K/uL (4.8-10.8)
[2020-09-19 06:52] LABS: Albumin Globulin Ratio 0.3 (0.9-2); BUN Creatinine Ratio 7.9 (10-20); Bilirubin,Total 0.4 mg/dl (0.2-1); Creatinine Clr Calc Pharmacy 36.4 ml/min; Est GFR (African American) 71.9; Est GFR (Non-African American) 62.1; Globulin 6.8 gm/dl (2.5-4.0); Magnesium 1.9 mg/dl (1.8-2.4); Potassium 3.6 mmol/L (3.5-5.1); Total Protein 8.8 gm/dl (6.4-8.2)
[2020-09-19] MEDS: DOCUSATE SODIUM 100 MG CAP PO SCH (07:58)
[2020-09-19] MEDS: RIVAROXABAN 10 MG TABLET PO SCH (07:58)
[2020-09-19] MEDS: LENALIDOMIDE PO SCH (07:58)
[2020-09-19] MEDS: DONEPEZIL HCL 10 MG TAB PO SCH (07:58)
[2020-09-19] MEDS: CEROVITE ADV FORMULA TAB PO SCH (07:58)
[2020-09-19] MEDS: CHOLECALCIFEROL 1,000 UNITS 25 MCG TAB PO SCH (07:58)
--- NOTE | 2020-09-19 19:01 | Hospitalist Progress Note ---
Date of Service September 19, 2020 Assessment & Plan (1) Anemia: Presented with severe anemia (Hgb = 5.4). Baseline Hgb 11-12. Anemia probably multifactorial, primary due to acute blood loss from GI bleeding + underlying multiple myeloma. Received 2 units pRBC's. Hgb 5.4 >> 7.5. (2) Gastrointestinal bleed: Presented with dark stools, heme +. EGD 09/17 demonstrated superficial erosions in stomach and duodenum, but no active bleeding. CT demonstrated some thickening of bowel wall consistent with colitis. Colonoscopy considered, but patient declined. Aspirin on hold- need to clarify indication. Continue PPI, perhaps long-term in light of need for long-term anticoagulation. (3) Demand ischemia of myocardium: Troponin as high as 0.692. No chest pain. EKG showed nonspecific changes. Echo did not show any wall motion abnormalities. Probable demand ischemia secondary to severe anemia. (4) Hypokalemia: K as low as 3.0. Receive replacement. K today = 3.6. (5) HTN (hypertension): Lisinopril held secondary to GI bleeding. Hemodynamically stable. (6) CKD (chronic kidney disease) stage 3, GFR 30-59 ml/min: CKD III with baseline creatinine around 1.1. Creatinine today = 0.84. (7) Multiple myeloma: Receiving lenalidomide + dexamethasone under direction of Dr. Howell. (8) History of DVT (deep vein thrombosis): History of DVT with ongoing risk due to multiple myeloma + lenalidomide. Continue rivaroxaban (dose temporarily reduced due to GI bleeding. (9) DVT prophylaxis: As noted above. (10) Discharge planning issues: Anticipated discharge to home with home health services. Primary care follow-up with Dk Hernandez PA-C ([place]). Hematology / Medical Oncology follow-up with Dr. Howell. Admission and Anticipated Discharge Date Admission Date: September 16, 2020 Subjective Recheck for anemia and other problems. Patient seen in their room around 1200. Son visiting. Has received 2 units pRBC's. Feels somewhat better, but still weak. Stools still dark. No abdominal pain, nausea, vomiting. Telemetry data reviewed: sinus bradycardia in 50's. Review of Systems: Constitutional- no fever. Cardiac- no chest pain. Pulmonary- no cough or SOB. GI- as noted above. - no urinary symptoms. Otherwise, as noted above. Physical Exam Constitutional: no acute distress Eyes: sclerae not anicteric Respiratory: no respiratory distress Auscultation: lungs clear to auscultation bilaterally Cardiovascular: Rate/Rhythm: regular rate and regular rhythm Vessels: no JVD Extremities: no calf tenderness and no edema Gastrointestinal (Abdomen): normal bowel sounds, soft, nontender, no hepatosplenomegaly Musculoskeletal: Extremities: no cyanosis Skin: no rashes, warm and dry Psychiatric: Orientation: alert Results & Data Results & Data ([facility]) Vital Signs (Past 12 Hours) Vital Signs Temp Pulse Pulse Resp BP Pulse Ox 09/19/20 16:41 75 09/19/20 16:29 36.7 C 66 18 103/63 95 09/19/20 11:25 36.9 C 68 18 125/69 94 09/19/20 07:23 64 09/19/20 07:22 36.9 C 77 18 127/71 93 Laboratory Results Laboratory Results - last 24 hr 09/18/20 09/19/20 09/19/20 20:10 05:47 05:47 WBC 4.08 L RBC 2.57 L Hgb 7.5 L 7.5 L Hct 23.4 L 23.7 L MCV 92.2 MCH 29.2 MCHC 31.6 L RDW Std Deviation 58.2 H RDW Coeff of Teodoro 17.8 H Plt Count 135 MPV 10.7 H Sodium 139 Potassium 3.6 D Chloride 112 H Carbon Dioxide 21 Anion Gap 6.0 BUN 7 Creatinine 0.84 Est Cr Clr Drug Dosing 36.4 Est GFR ( Amer) 71.9 Est GFR (Non-Af Amer) 62.1 BUN/Creatinine Ratio 7.9 L Glucose 89 Calcium 8.0 L Magnesium 1.9 Total Bilirubin 0.4 AST 22 ALT 52 Alkaline Phosphatase 60 Total Protein 8.8 H Albumin 2.0 L Globulin 6.8 H Albumin/Globulin Ratio 0.3 L (1) Anemia Anemia type: unspecified type Qualified Code(s): D64.9 - Anemia, unspecified (2) Multiple myeloma Multiple myeloma remission status: unspecified Qualified Code(s): C90.00 - Multiple myeloma not having achieved remission
[2020-09-19] MEDS: MIRTAZAPINE TAB 15 MG TAB PO SCH (20:20)
[2020-09-20 07:15] LABS: Hematocrit (blood only) 25.7 % (37-47); Hemoglobin 8.3 g/dL (12.0-16.0)
[2020-09-20 07:47] LABS: BUN Creatinine Ratio 9.4 (10-20); Creatinine Clr Calc Pharmacy 35.4 ml/min; Est GFR (African American) 69.9; Est GFR (Non-African American) 60.3; Potassium 3.4 mmol/L (3.5-5.1)
[2020-09-20] MEDS ORDERED: POTASSIUM CHLORIDE CRTAB 20 MEQ TABCR PO ONE (08:19)
[2020-09-20] MEDS: CEROVITE ADV FORMULA TAB PO SCH (08:25)
[2020-09-20] MEDS: DONEPEZIL HCL 10 MG TAB PO SCH (08:25)
[2020-09-20] MEDS: DOCUSATE SODIUM 100 MG CAP PO SCH (08:25)
[2020-09-20] MEDS: LENALIDOMIDE PO SCH (08:25)
[2020-09-20] MEDS: CHOLECALCIFEROL 1,000 UNITS 25 MCG TAB PO SCH (08:25)
[2020-09-20] MEDS: RIVAROXABAN 10 MG TABLET PO SCH (08:25)
[2020-09-20] MEDS ORDERED: lisinopril 2.5 MG TAB PO SCH (09:00)
--- NOTE | 2020-09-20 11:02 | Hospitalist Progress Note ---
Date of Service September 20, 2020 Assessment & Plan (1) Anemia: Presented with severe anemia (Hgb = 5.4). Baseline Hgb 11-12. Anemia probably multifactorial, primary due to acute blood loss from GI bleeding + underlying multiple myeloma. Received 2 units pRBC's. Hgb 5.4 >> 7.5 > 8.3. Has order for weekly CBC in clinic. (2) Gastrointestinal bleed: Presented with dark stools, heme +. EGD 09/17 demonstrated superficial erosions in stomach and duodenum, but no active bleeding. CT demonstrated some thickening of bowel wall consistent with colitis. Colonoscopy considered, but patient declined. Aspirin on hold- need to clarify indication. Continue PPI, perhaps long-term in light of need for long-term anticoagulation. (3) Demand ischemia of myocardium: Troponin as high as 0.692. No chest pain. EKG showed nonspecific changes. Echo did not show any wall motion abnormalities. Probable demand ischemia secondary to severe anemia. (4) Hypokalemia: K as low as 3.0. Receive replacement. Follow. (5) HTN (hypertension): Lisinopril held secondary to GI bleeding. Hemodynamically stable. (6) CKD (chronic kidney disease) stage 3, GFR 30-59 ml/min: CKD III with baseline creatinine around 1.1. Creatinine day of discharge = 0.86. (7) Multiple myeloma: Receiving lenalidomide + dexamethasone under direction of Dr. Howell. (8) History of DVT (deep vein thrombosis): History of DVT with ongoing risk due to multiple myeloma + lenalidomide. Continue rivaroxaban (dose temporarily reduced due to GI bleeding. (9) DVT prophylaxis: As noted above. (10) Discharge planning issues: Discharge to home with home health services. Primary care follow-up with Dk Hernandez PA-C ([place]). Hematology / Medical Oncology follow-up with Dr. Howell. Admission and Anticipated Discharge Date Admission Date: September 16, 2020 Subjective Recheck for anemia and other problems. Patient seen in their room around 1050. Doing well. No abdominal pain, nausea, vomiting, melena, hematochezia. Ambulating independently with walker. Ready to go home. Physical Exam Constitutional: no acute distress Eyes: + anicteric sclerae Respiratory: no respiratory distress Auscultation: lungs clear to auscultation bilaterally Cardiovascular: Rate/Rhythm: regular rate and regular rhythm Vessels: no JVD Extremities: no calf tenderness and no edema Gastrointestinal (Abdomen): normal bowel sounds, soft, nontender, no hepatosplenomegaly Musculoskeletal: Extremities: no cyanosis Skin: no rashes, warm and dry Psychiatric: Orientation: alert Results & Data Results & Data ([facility]) Vital Signs (Past 12 Hours) Vital Signs Temp Pulse Pulse Resp BP Pulse Ox 09/20/20 07:55 36.7 C 106 H 18 118/72 93 09/20/20 07:00 68 09/20/20 04:00 36.6 C 69 18 118/74 95 09/20/20 01:26 64 Laboratory Results 09/20/20 07:01 09/20/20 07:01 (1) Anemia Anemia type: unspecified type Qualified Code(s): D64.9 - Anemia, unspecified (2) Multiple myeloma Multiple myeloma remission status: unspecified Qualified Code(s): C90.00 - Multiple myeloma not having achieved remission
--- NOTE | 2020-09-24 03:27 | Discharge Summary ---
Date of Service Date of Admission: 09/16/20 Date of Discharge: 09/20/20 Admission HPI Per Admitting Provider 89 yo female with PMH of CKD stage 3, HTN, DVT, dementia present on admission with general weakness. Pt said that for the last few days she has been very weak and tired. She said that she does not have any energy to do anything. She sad that for the last few days that she has been having very dark stool. she said that she thought that was due to the prune juice. She said that she has been having right shoulder pain and neck pain that gradually worsening. Pt has history of DVT and has been on Xarelto and aspirin. She saw her Oncology DrRaheel Howell on 08/28 and was started on Revlimid daily and dexamethasone weekly. Her Hgb was 5.4 today. She never had any blood transfusion in the past. Denies any chest pain, palpitation, dizziness, SOB, fever, nausea and vomiting. Principal Diagnosis anemia gastrointestinal bleeding Discharge Data Allergies Allergy/AdvReac Type Severity Reaction Status Date / Time No Known Allergies Allergy Unverified 09/16/20 09:21 Consultations 09/16/20 12:40 ED Decision to Admit Stat 09/16/20 16:22 Consult Gastroenterology Routine 09/17/20 11:23 Consult Case Management - Discharge Planning Routine Procedures Performed Operation Date: 09/17/20 16:30 Actual Procedures p Esophagogastroduodenoscopy - Kim Welch MD Ordered Studies 09/16/20 09:26 CT head/brain wo con Stat 09/16/20 09:27 CT abd pelvis IV con only Stat Hospital Course (1) Anemia: Presented with severe anemia (Hgb = 5.4). Baseline Hgb -12. Anemia probably multifactorial, primary due to acute blood loss from GI bleeding + underlying multiple myeloma. Received 2 units pRBC's. Hgb 5.4 >> 7.5 > 8.3. Has order for weekly CBC in clinic. (2) Gastrointestinal bleed: Presented with dark stools, heme +. EGD 09/17 demonstrated superficial erosions in stomach and duodenum, but no active bleeding. CT demonstrated some thickening of bowel wall consistent with colitis. Colonoscopy considered, but patient declined. Aspirin on hold- need to clarify indication. Continue PPI, perhaps long-term in light of need for long-term anticoagulation. (3) Demand ischemia of myocardium: Troponin as high as 0.692. No chest pain. EKG showed nonspecific changes. Echo did not show any wall motion abnormalities. Probable demand ischemia secondary to severe anemia. (4) Hypokalemia: K as low as 3.0. Receive replacement. Follow. (5) HTN (hypertension): Lisinopril held secondary to GI bleeding. Hemodynamically stable. (6) CKD (chronic kidney disease) stage 3, GFR 30-59 ml/min: CKD III with baseline creatinine around 1.1. Creatinine day of discharge = 0.86. (7) Multiple myeloma: Receiving lenalidomide + dexamethasone under direction of Dr. Howell. (8) History of DVT (deep vein thrombosis): History of DVT with ongoing risk due to multiple myeloma + lenalidomide. Continue rivaroxaban (dose temporarily reduced due to GI bleeding. (9) DVT prophylaxis: As noted above. (10) Discharge planning issues: Discharged to home with home health services. Primary care follow-up with Dk Hernandez PA-C ([place]). Hematology / Medical Oncology follow-up with Dr. Howell. Total Time Total Time Spent Total Time Spent (In Minutes): 40 Discharge Plan Discharge Items Patient Disposition: Home - Home Health Services Reason For Visit: anemia (low red blood count) Discharge Diagnosis: anemia (low red blood count) Activity: As commented below Activity Comment: Please use walker and be careful not to fall. Non-emergency contact: Primary Care Provider, Hospitalist and Oncologist Call non-emergency contact if: you have any medication questions, your symptoms worsen and your temperature is above 101 Follow-up/Referrals: Dk Hernandez PA-C [Primary Care Provider] - (09/24/2020 3:00 PM Dk Hernandez PA-C [facility] [place] ) Maggie Howell MD [Hospitalist] - (As scheduled.) Diet: Heart Healthy Addtl Attending Provider Instructions: MEDICATION CHANGES: STOP: aspirin. (It can cause stomach ulcers.) NEW MEDICATIONS: pantoprazole (Protonix) 20 mg daily (to treat / prevent stomach ulcers) ferrous sulfate (iron pill) 325 mg daily with lunch (to treat anemia) ascorbic acid (vitamin C) 500 mg daily with lunch (helps your body absorb more iron) potassium chloride 10 mEq daily for 1 week (for low potassium) Hold docusate sodium (Colace) if your stools are loose. Call the office for testing if you have persistent loose stools. SUMMARY OF TEST RESULTS: Hemoglobin level day of admission was 5.4. Hemoglobin day of discharge (09/20) was 8.3 after receiving 2 units of blood. Potassium level was low. EGD (scope to look in stomach) showed some small ulcers. RECOMMENDATIONS FOR FOLLOW-UP: Continue weekly lab tests as before. OTHER INSTRUCTIONS: Seek medical attention if you have: * temperature above 101 * chest pain or trouble breathing * abdominal pain, nausea, vomiting * diarrhea, dark stools or bloody stools * any unanswered questions or concerns Call 911 if symptoms are severe. Please take good care of yourself. Call if you have any questions or problems. You can reach a [facility] hospitalist on duty at [facility] 24 hours a day by calling [phone]. My cell # is [phone]. Pending Studies at Discharge: No Stand-Alone Forms: [facility], Smoking Cessation Medications and DC Order Prescriptions: New pantoprazole 20 mg tablet,delayed release (DR/EC) 20 mg PO DAILY Qty: 30 RF: 5 ferrous sulfate 325 mg (65 mg iron) tablet 325 mg PO DAILY Qty: 30 RF: 5 potassium chloride 10 mEq capsule, extended release 10 meq PO DAILY Qty: 7 RF: 0 ascorbic acid (vitamin C) 500 mg tablet 500 mg PO DAILY Qty: 30 RF: 5 Continued nystatin 100,000 unit/mL Suspension 5 ml PO QID RF: 0 donepezil 10 mg tablet 10 mg PO DAILY RF: 0 docusate sodium 100 mg Capsule 100 mg PO DAILY RF: 0 lisinopril 5 mg tablet 5 mg PO DAILY RF: 0 mirtazapine 15 mg tablet 15 mg PO HS RF: 0 acetaminophen 500 mg Capsule 500 mg PO Q4H PRN (Reason: Fever) RF: 0 simethicone 80 mg Tablet,Chewable 80 mg PO QID PRN (Reason: Gastric Reflux) RF: 0 oxycodone 5 mg tablet 5 mg PO Q6H PRN (Reason: Pain) RF: 0 Revlimid 10 mg capsule 10 mg PO DAILY RF: 0 cholecalciferol (vitamin D3) [Vitamin D3] 50 mcg (2,000 unit) Tablet 50 mcg PO DAILY RF: 0 Xarelto 15 mg tablet 15 mg PO DAILY RF: 0 PreserVision AREDS-2 [id number]-[id number]-mg Capsule 1 tab PO DAILY RF: 0 Discontinued aspirin [Aspirin Low-Strength] 81 mg Tablet,Delayed Release (Dr/Ec) 81 mg PO DAILY RF: 0 Discharge Orders: Discharge Order (Routine); Ordered 09/20/20 Ordered By: Cricket Baldwin Admission Data Admit Date/Time: 09/16/20 13:48 Attending Provider: Cricket Baldwin Admit Provider: Magnus Lott Primary Care Provider: Dk Hernandez Other Providers: Magnus Ltot ; Naren Perkins ; Tylor Quesada ; [facility] ; [facility] Health Other Interventions: Discharge Summary Assessment (RN) Last Done: 09/20/20 12:22
== END 2020-09-20 14:06 | disposition home health service (06) | DRG 377 ==
LOC: ED 08:48 → 2N 13:48 → SUATTDRO 13:48 → 2N 15:27